=== PATIENT | female | born 1935 | race Caucasian/White ===

== ENCOUNTER 2022-07-22 18:24 | Inpatient (IN) ==
--- NOTE | 2022-07-22 20:25 | Emergency Department Note ---
History of Present Illness General Chief complaint: Leg Injury/Pain Stated complaint: SEVERE LEG PAIN Time Seen by Provider: 07/22/22 20:05 History of Present Illness Maximum Pain Intensity: 10 87-year-old female who presents to the emergency department with family with complaint of ongoing left lower extremity pain for the past month. The patient reports that it feels like spasms in her leg. She reports that the pain is intermittent in nature, upwards of 3 times daily. The patient did have an x-ray of her left hip showing evidence for severe osteoarthritis. She is awaiting an appointment with an orthopedic surgeon to discuss further treatment options. The patient is waiting for an appointment for possible injection within her hip joint. The patient has been taking prednisone, and is currently prescribed hydrocodone (to be taken 4 times daily) from her family doctor without any significant relief. The patient reports occasional lower back pain. She has not noticed any swelling of the left leg. She denies history of blood clots. The patient is on Eliquis. The patient rates her discomfort a 7 out of 10. Home Medications Medication Instructions Recorded Confirmed Type apixaban 5 mg tablet (Eliquis) 5 mg PO BID 07/15/22 07/15/22 History ascorbic acid (vitamin C) 1,000 mg 1 g PO Q6H 07/15/22 07/15/22 History capsule coenzyme Q10 100 mg capsule 100 mg PO DAILY 07/15/22 07/15/22 History (CoQ-10) diltiazem HCl 120 mg 120 mg PO DAILY 07/15/22 07/15/22 History capsule,extended release 24 hr (Cardizem CD) furosemide 40 mg tablet 40 mg PO DAILY 07/15/22 07/15/22 History lorazepam 0.5 mg tablet 0.5 mg PO HS 07/15/22 07/15/22 History multivitamin 1 tab PO DAILY 07/15/22 07/15/22 History potassium gluconate 595 mg (99 mg) 595 mg PO DAILY 07/15/22 07/15/22 History tablet diclofenac sodium 3 % topical gel 1 applic topical BID PRN pain #100 07/16/22 07/16/22 Rx grams losartan 50 mg tablet 50 mg PO DAILY #90 tabs 07/16/22 07/16/22 Rx cholecalciferol (vitamin D3) 50 50 mcg PO DAILY #90 caps 09/13/22 Rx mcg (2,000 unit) capsule famotidine 40 mg tablet 40 mg PO BID #180 tabs 07/20/22 Rx hydrocodone 5 mg-acetaminophen 325 1 tab PO Q6H PRN pain #120 tabs 07/20/22 Rx mg tablet levothyroxine 100 mcg tablet 100 mcg PO DAILY #90 tabs 07/20/22 Rx (Levoxyl) mecobalamin (vitamin B12) 1,000 1,000 mcg PO DAILY #90 ea 07/20/22 Rx mcg lozenges Brandon-600 With Vitamin D PO DAILY 07/22/22 History celecoxib PO QAM 07/22/22 History melatonin PO HS PRN Insomnia 07/22/22 History mirtazapine 15 mg tablet 7.5 mg PO HS 07/22/22 History Allergies Allergy/AdvReac Type Severity Reaction Status Date / Time Penicillins Allergy Unknown Unverified 07/15/22 09:58 [id number] Reductase AdvReac Severe Muscle Pain Unverified 07/16/22 06:28 Inhibitor Past Med/Surg History Medical History MAILE (acute kidney injury) Anemia Edema, lower extremity Hyperlipidemia Hypertension Hypothyroid Insomnia Neuropathy Osteoarthritis of multiple joints Permanent atrial fibrillation Surgical History No pertinent past surgical history Family History Sister Breast cancer Father Myocardial infarction Denies family history of Ovarian cancer Prostate cancer Colorectal cancer Social History Smoking Status: Never smoker Second Hand Exposure: No; Hx Alcohol Use: No Hx Substance Use: No Preferred Language: Guatemalan Visual Impairment: No Limitations Hearing Ability: Normal Caramel Cutter Machine Required: No Beliefs That Will Affect Care: None marital status: Single Current Living Situation: Family Current Living Situation Comment: lives w/ son How many Children do You have: 4 Feels Safe at Home: Yes Childhood Exposure to Second-Hand Smoke: No caffeine: Yes during the past year weight has: remained stable Review of Systems 10 system review was performed and was negative except for pertinent positives and negatives as indicated in history of present illness Physical Exam Vital Signs Vital Signs - 24 hr 07/22/22 19:26 07/22/22 22:56 Temperature 36.9 C Temperature Source Oral Pulse Rate 121 H Pulse Rate [Apical] 116 H Respiratory Rate 18 20 Respiratory Effort / Characteristics Non-Labored Spontaneous Non-Labored Respiratory Depth Normal Normal Blood Pressure 130/71 Blood Pressure [Right Arm] 140/75 Blood Pressure Mean 90 Blood Pressure Mean [Right Arm] 96 Blood Pressure Position Sitting Pulse Oximetry 91 95 Oxygen Delivery Method Room Air Room Air Sepsis Recent Fever Within 48 Hours No Sepsis New/Unexplained Change in Mental Status No Sepsis Action Taken by Nursing No Action Required CONSTITUTIONAL: Healthy and well nourished. Alert and oriented X 3. Patient appears in mild discomfort. HEENT: No scleral icterus or conjunctival injection/pallor. NECK: Full active range of motion without discomfort. LYMPHATICS: No cervical chain adenopathy. RESPIRATORY: Clear to auscultation bilaterally with no wheezing, crackles, rhonchi or stridor. CARDIOVASCULAR: Regular rate and rhythm with no murmurs, rubs or gallops. GASTROINTESTINAL: Bowel sounds present in all quadrants. Abdomen is soft and nontender to palpation. MUSCULOSKELETAL: Examination shows discomfort with logroll of the left hip. She has a negative sitting straight leg raise, and no focal tenderness to palpation through the lower lumbar spine or paraspinous muscles. Ankle plantar/dorsiflexion strength is 4 out of 5 and symmetric bilaterally. Pedal pulses are intact. INTEGUMENTARY: No rash or other significant dermatologic conditions noted. HEMATOLOGIC: No ecchymosis or petechiae. PSYCHIATRIC: Positive affect. NEUROLOGIC: Left foot and toes are sensory intact with deep tendon reflexes 2+ and symmetric bilaterally. Course Course Patient history and physical exam were performed. Nurses notes were reviewed. Vital signs were reviewed, showing a tachycardia. The patient denies any chest pain or shortness of breath. I explained that her symptoms are likely secondary to her severe osteoarthritis of the hip, however I did suggest possibilities of lumbar radiculitis, as well as possibility of DVT. I did recommend x-rays of the lumbar spine, and venous ultrasound of the left lower extremity. The patient and family were in agreement. X-rays of the lumbar spine shows significant degenerative changes and disc disease. Venous ultrasound of the left lower extremity was negative for DVT. After imaging, the patient still had notable discomfort. The daughter also reports that they are unable to take care of her at home as she is unable to weight-bear. At this point, IV access was established, and labs were drawn and reviewed without any concerning findings. COVID-19 test was negative. The case was discussed further with Dr. Chapman, ED attending physician, who agrees with hospitalist consultation. The case was then discussed with Dr. Cary, [facility] hospitalist who will evaluate the patient. Please see the hospitalist notes for further management and final disposition. Orthopedic consult will also be received tomorrow. I suspect the patient likely will require an outpatient total hip arthroplasty. Administered Medications Discontinued Medications Sodium Chloride (Nss) 500 mls @ 999 mls/hr IV .Q31M ONE Stop: 07/22/22 22:34 Last Infusion: 07/22/22 23:27 Dose: 0 mls/hr Documented By: Admin: 07/22/22 22:55 Dose: 999 mls/hr Documented By: ES Morphine Sulfate (Morphine Sulfate 4 Mg/Ml 1 Ml Carp\Vial) 4 mg IV NOW STA Stop: 07/22/22 22:05 Last Admin: 07/22/22 22:55 Dose: 4 mg Documented By: ES Ondansetron HCl (Ondansetron Inj 2 Mg/Ml 2 Ml Vial) 4 mg IV NOW STA Stop: 07/22/22 22:05 Last Admin: 07/22/22 22:55 Dose: 4 mg Documented By: TRENT Medical Decision Making Medical Records Attestation: I reviewed the patient's medical records. Home Medications Current Medication List: was personally reviewed by me Laboratory Data Attestation: I reviewed the patient's lab results. Result diagrams: 07/22/22 22:22 07/22/22 22:22 Lab Results 07/22/22 07/22/22 07/22/22 Range/Units 22:22 22:22 22:22 WBC 8.32 (4.8-10.8) K/ul RBC 3.56 L (3.93-5.22) M/uL Hgb 11.6 L (12.0-16.0) g/dl Hct 33.8 L (34.1-44.9) % MCV 94.9 (80.0-100.0) fL MCH 32.6 (25.0-34.0) pg MCHC 34.3 (32.0-36.0) g/dL RDW Std Deviation 48.9 H (36.4-46.3) fL RDW Coeff of Marcus 14.3 (11.5-14.5) % Plt Count 424 H (130-400) K/uL MPV 9.0 L (9.4-12.3) fL Immature Gran % (Auto) 0.8 % Neut % (Auto) 66.7 % Lymph % (Auto) 18.6 % Robertson % (Auto) 13.0 % Eos % (Auto) 0.5 % Baso % (Auto) 0.4 % Neut # (Auto) 5.55 (1.4-6.5) K/uL Lymph # (Auto) 1.55 (1.2-3.4) K/uL Robertson # (Auto) 1.08 H (0.24-0.82) K/uL Eos # (Auto) 0.04 (0-0.50) K/uL Baso # (Auto) 0.03 (0-0.2) K/uL Immature Gran # (Auto) 0.07 H (0.00-0.02) K/uL Sodium 137 (136-145) mmol/L Potassium 3.4 L (3.5-5.1) mmol/L Chloride 97 L (98-107) mmol/L Carbon Dioxide 30 (21-32) mmol/L Anion Gap 10 (3-11) BUN 17 (6-23) mg/dl Creatinine 0.94 (0.6-1.2) mg/dl Est Cr Clr Drug Dosing Not Reportable Est GFR ( Amer) 62.8 ml/min Est GFR (Non-Af Amer) 54.2 ml/min BUN/Creatinine Ratio 18.1 (10-20) Glucose 103 H (70-99(Fasting)) mg/dl Calcium 9.8 (8.5-10.1) mg/dl Total Bilirubin 0.5 (0.2-1.0) mg/dl AST 36 (13-39) U/L ALT 27 (7-52) U/L Alkaline Phosphatase 86 (34-104) U/L Total Protein 7.0 (6.0-8.3) gm/dl Albumin 4.3 (3.4-5.0) gm/dl Globulin 2.7 (2.5-4.0) gm/dl Albumin/Globulin Ratio 1.6 (0.9-2) SARS-CoV-2, RNA, NAAT NEGATIVE (NEGATIVE) Imaging Data Attestation: I personally reviewed and interpreted this imaging study as follows: My Impression: My interpretation of lumbar spine x-rays shows significant degenerative disc disease and osteoarthritis without obvious fracture. Local radiologist report is pending. Venous ultrasound of the left lower extremity was negative for DVT. Our local radiologist read this ultrasound report. Radiologist's Impression: Venous Doppler Study 07/22/22 20:05 LEFT LOWER EXTREMITY VENOUS DOPPLER HISTORY: Leg pain. COMPARISON STUDY: None. FINDINGS: There is normal compressibility, flow, and augmentation within the left lower extremity deep venous system. IMPRESSION: No DVT within the left lower extremity. ACT 112: Negative or not required by law. Electronically signed by: Melvin Willett M.D. 07/22/2022 8:54 PM Prescription Drug Monitoring [place] Drug Monitoring Program reviewed and findings noted below (Patient receives monthly prescriptions for hydrocodone from her PCP) Blood Pressure Blood Pressure Findings: Normal blood pressure MDM Narrative Patient presents the emergency department with known history of severe left hip osteoarthritis, and now inability to ambulate or weight-bear secondary to the pain. X-rays do not show evidence for fracture. I suspect the patient also has a component of lumbar radiculitis, with lumbar x-rays also showing severe degenerative changes. Given that the patient is unable to weight-bear, and in notable discomfort that is not controlled with hydrocodone, she will require further hospital evaluation and orthopedic consult. Impression & Plan Primary osteoarthritis of left hip, Left lumbar radiculitis, Osteoarthritis of lumbar spine, Inability to bear weight Discharge Plan Visit Data Chief Complaint: Leg Injury/Pain Stated Complaint: SEVERE LEG PAIN ED Provider: Delfin Chapman ED Midlevel Provider: Ronn Mendez Discharge Problem: Primary osteoarthritis of left hip, Left lumbar radiculitis, Osteoarthritis of lumbar spine, Inability to bear weight Forms Stand Alone Forms: My [employer] Prescriptions Prescriptions: No Action mecobalamin (vitamin B12) 1,000 mcg lozenge 1,000 mcg PO DAILY Qty: 90 3RF Rx Instructions: allow to dissolve in mouth OR may chew lightly before swallowing cholecalciferol (vitamin D3) 50 mcg (2,000 unit) capsule 50 mcg PO DAILY Qty: 90 3RF levothyroxine [Levoxyl] 100 mcg tablet 100 mcg PO DAILY Qty: 90 3RF hydrocodone-acetaminophen 5-325 mg tablet 1 tab PO Q6H PRN (Reason: pain) Qty: 120 0RF famotidine 40 mg tablet 40 mg PO BID Qty: 180 3RF potassium gluconate 595 mg (99 mg) tablet 595 mg PO DAILY furosemide 40 mg tablet 40 mg PO DAILY Eliquis 5 mg tablet 5 mg PO BID diltiazem HCl [Cardizem CD] 120 mg capsule,extended release 24hr 120 mg PO DAILY ascorbic acid (vitamin C) 1,000 mg capsule 1 g PO Q6H multivitamin Tablet 1 tab PO DAILY coenzyme Q10 [CoQ-10] 100 mg capsule 100 mg PO DAILY lorazepam 0.5 mg tablet 0.5 mg PO HS losartan 50 mg tablet 50 mg PO DAILY Qty: 90 3RF diclofenac sodium 3 % gel 1 applic topical BID PRN (Reason: pain) Qty: 100 5RF Rx Instructions: Apply sparingly to knee as needed for pain Brandon-600 With Vitamin D 600 mg tablet PO DAILY celecoxib 200 mg capsule PO QAM melatonin 2.5 mg PO HS PRN (Reason: Insomnia) mirtazapine 15 mg tablet 7.5 mg PO HS Referrals Referrals: Obey Peacock CRNP [Primary Care Provider] -
--- NOTE | 2022-07-22 20:56 | Ultrasound Report ---
LEFT LOWER EXTREMITY VENOUS DOPPLER HISTORY: Leg pain. COMPARISON STUDY: None. FINDINGS: There is normal compressibility, flow, and augmentation within the left lower extremity chio p venous system. IMPRESSION: No DVT within the left lower extremity. ACT 112: Negative or not required by law. Electronically signed by: Melvin Willett M.D. 07/22/2022 8:54 PM
[2022-07-22] MEDS ORDERED: ONDANSETRON INJ 2 MG/ML 2 ML VIAL IV STA (22:04)
[2022-07-22] MEDS ORDERED: MoRPHine SULFATE 4 MG/ML 1 ML CARP\\VIAL IV STA (22:04)
[2022-07-22] MEDS ORDERED: SODIUM CHLORIDE 0.9% 500 ML IV ONE (22:04)
[2022-07-22 22:39] LABS: Basophils # (auto) 0.03 K/uL (0-0.2); Basophils % (auto) 0.4 %; Eosinophils # (auto) 0.04 K/uL (0-0.50); Eosinophils % (auto) 0.5 %; Hematocrit (blood only) 33.8 % (34.1-44.9); Hemoglobin 11.6 g/dl (12.0-16.0); Immature Granulocytes # (auto) 0.07 K/uL (0.00-0.02); Immature Granulocytes % (auto) 0.8 %; Lymphocytes # (auto) 1.55 K/uL (1.2-3.4); Lymphocytes % (auto) 18.6 %; Mean Corpuscular Hemoglobin 32.6 pg (25.0-34.0); Mean Corpuscular Hgb Conc 34.3 g/dL (32.0-36.0); Mean Corpuscular Volume 94.9 fL (80.0-100.0); Monocytes # (auto) 1.08 K/uL (0.24-0.82); Neutrophils # (auto) 5.55 K/uL (1.4-6.5); Neutrophils % (auto) 66.7 %; Platelet Count 424 K/uL (130-400); RDW Coefficient of Variation 14.3 % (11.5-14.5); RDW Standard Deviation 48.9 fL (36.4-46.3); Red Blood Count 3.56 M/uL (3.93-5.22); White Blood Count 8.32 K/ul (4.8-10.8)
[2022-07-22 23:15] LABS: Alanine Aminotransferase 27 U/L (7-52); Albumin Globulin Ratio 1.6 (0.9-2); Albumin Level 4.3 gm/dl (3.4-5.0); Alkaline Phosphatase 86 U/L (34-104); Anion Gap 10 (3-11); Aspartate Aminotransferase 36 U/L (13-39); BUN Creatinine Ratio 18.1 (10-20); Bilirubin,Total 0.5 mg/dl (0.2-1.0); Blood Urea Nitrogen 17 mg/dl (6-23); Calcium 9.8 mg/dl (8.5-10.1); Carbon Dioxide 30 mmol/L (21-32); Chloride 97 mmol/L (98-107); Est GFR (African American) 62.8 ml/min; Est GFR (Non-African American) 54.2 ml/min; Globulin 2.7 gm/dl (2.5-4.0); Glucose 103 mg/dl (70-99(Fasting)); Potassium 3.4 mmol/L (3.5-5.1); Sodium 137 mmol/L (136-145)
--- NOTE | 2022-07-22 23:59 | History & Physical Report ---
Date of Service July 22, 2022 Assessment & Plan (1) Primary osteoarthritis of left hip: Plan: Severe osteoarthritis left hip/lumbar spine/left lumbar radiculitis/inability to bear weight- Admit patient to the hospital for pain management and orthopedic assessment Acetaminophen 1000 mg IV every 8 hours. Mild pain or fever Morphine sulfate 2 mg IV every 3 hours as needed moderate pain Morphine sulfate 4 mg IV every 3 hours as needed severe pain Continue tizanidine Consult orthopedic surgery as needed (2) Ambulatory dysfunction: Plan: X-rays and CT scan of the lumbar spine, pelvis and hips show severe osteoarthritis as noted, with no signs of fracture (3) Left lumbar radiculitis: Plan: Continue gabapentin (4) Permanent atrial fibrillation: Plan: Permanent A. fib/hypertension- Continue apixaban, diltiazem, furosemide, losartan and spironolactone (5) Osteoarthritis of lumbar spine: Plan: Pain management as noted (6) Inability to bear weight: (7) Neuropathy: Plan: Continue gabapentin, duloxetine, (8) Insomnia: Plan: Continue mirtazapine, duloxetine (9) Hypothyroid: Plan: Continue levothyroxine (10) Hyperlipidemia: Plan: Continue (11) Hypertension: Plan: See above History of Present Illness Chief Complaint: The patient is brought to the emergency department due to worsening left lower extremity pain for the past month Primary Care Provider: PETER Teixeira The patient is a an 87-year-old female with a past medical history including peripheral neuropathy, insomnia, lower extremity edema, MAILE, anemia, hypothyroidism, hyperlipidemia, hypertension and permanent atrial fibrillation. She had recently moved from [facility] to [place] to be closer to her family. She had had an outpatient x-ray which showed significant osteoarthritis of left hip, and has been waiting in the outpatient setting for an orthopedic appointment. Due to worsening pain and worsening ability to ambulate, she was brought to the emergency department for assessment, patient's family was unable to take her home at this time. She was also found to be in known atrial fibrillation, heart rate initially of recorded as 120, did improve with pain control. Allergies Allergy/AdvReac Type Severity Reaction Status Date / Time Penicillins Allergy Unknown Unknown Unverified 07/23/22 02:09 [id number]-[id number] Reductase AdvReac Severe Muscle Pain Unverified 07/23/22 02:09 Inhibitor Home Medications Medication Instructions Recorded Confirmed Type Bifidobacterium infantis 4 mg 4 mg PO DAILY 07/23/22 07/23/22 History capsule (Align) acetaminophen 650 mg 650 mg PO TID 07/23/22 07/23/22 History tablet,extended release apixaban 5 mg tablet (Eliquis) 5 mg PO BID 07/23/22 07/23/22 History ascorbic acid (vitamin C) 100 mg 100 mg PO DAILY 07/23/22 07/23/22 History tablet (Vitamin C) calcium carbonate 600 mg-vitamin 1 tab PO BID 07/23/22 07/23/22 History D3 20 mcg (800 unit) chewable tablet (Caltrate 600 plus D) celecoxib 200 mg capsule 200 mg PO QAM 07/23/22 07/23/22 History cholecalciferol (vitamin D3) 50 2,000 unit PO DAILY 07/23/22 07/23/22 History mcg (2,000 unit) capsule coenzyme Q10 100 mg capsule 100 mg PO DAILY 07/23/22 07/23/22 History (CoQ-10) cyanocobalamin (vitamin B-12) 1,000 mcg PO DAILY 07/23/22 07/23/22 History 1,000 mcg tablet (Vitamin B-12) diltiazem HCl 120 mg 120 mg PO DAILY 07/23/22 07/23/22 History capsule,extended release 24 hr duloxetine 30 mg capsule,delayed 30 mg PO DAILY 07/23/22 07/23/22 History release famotidine 40 mg tablet 40 mg PO BID 07/23/22 07/23/22 History furosemide 40 mg tablet 40 mg PO AMHS 07/23/22 07/23/22 History gabapentin 100 mg capsule 100 mg PO BID 07/23/22 07/23/22 History hydrocodone 5 mg-acetaminophen 325 1 tab PO Q6 PRN Pain 07/23/22 07/23/22 History mg tablet ipratropium bromide 21 mcg (0.03 2 spray intranasal BID PRN Nasal 07/23/22 07/23/22 History %) nasal spray Congestion levothyroxine 100 mcg tablet 100 mcg PO DAILY 07/23/22 07/23/22 History lidocaine 5 % topical patch 1 patch topical DAILY 07/23/22 07/23/22 History lorazepam 0.5 mg tablet 0.5 mg PO BID PRN Anxiety 07/23/22 07/23/22 History losartan 50 mg tablet 50 mg PO DAILY 07/23/22 07/23/22 History magnesium 250 mg tablet 250 mg PO DAILY 07/23/22 07/23/22 History mirtazapine 15 mg tablet 7.5 mg PO HS 07/23/22 07/23/22 History multivitamin 1 tab PO DAILY 07/23/22 07/23/22 History omega-3 fatty acids 1,000 mg PO DAILY 07/23/22 07/23/22 History potassium gluconate 595 mg (99 mg) 595 mg PO DAILY 07/23/22 07/23/22 History tablet pyridoxine (vitamin B6) 100 mg 100 mg PO DAILY 07/23/22 07/23/22 History tablet (Vitamin B-6) spironolactone 25 mg tablet 25 mg PO BID 07/23/22 07/23/22 History tizanidine 4 mg tablet 4 mg PO Q8 PRN Muscle Spasm 07/23/22 07/23/22 History Past Med/Surg History Medical History MAILE (acute kidney injury) Anemia Edema, lower extremity Hyperlipidemia Hypertension Hypothyroid Insomnia Neuropathy Osteoarthritis of multiple joints Permanent atrial fibrillation Surgical History No pertinent past surgical history Family History Sister Breast cancer Father Myocardial infarction Denies family history of Ovarian cancer Prostate cancer Colorectal cancer Social History Smoking Status: Never smoker Second Hand Exposure: No; Hx Alcohol Use: No Hx Substance Use: No Preferred Language: Khmer Visual Impairment: No Limitations Hearing Ability: Normal Utility Forester Required: No Beliefs That Will Affect Care: None marital status: Single Current Living Situation: Family Current Living Situation Comment: lives w/ son How many Children do You have: 4 Feels Safe at Home: Yes Childhood Exposure to Second-Hand Smoke: No caffeine: Yes during the past year weight has: remained stable Review of Systems Review of Systems: The patient denies chest pain, palpitations, shortness of breath, dyspnea on exertion, cough, sore throat, fevers, chills, sweats, weight change, fatigue, nausea, vomiting, diarrhea , constipation, abdominal pain, pelvic pain, blood in urine or stool, dysuria, urinary frequency or urgency, lightheadedness, dizziness, headache, memory loss, loss of consciousness, rash, abnormal bruising or bleeding, focal or generalized weakness, numbness or tingling in arms, generalized arthralgias or myalgias, neck pain, or night sweats. The review of systems is otherwise negative other than for that already noted above, and at least 10 systems have been reviewed. Physical Exam Physical Exam: The patient is awake, alert and oriented 3, well developed and well nourished, normocephalic and atraumatic, lying in bed and in no acute distress. HEENT--PERRL, EOMI, mucous membranes and oropharynx dry. Neck--supple. No JVD. No bruits. Thyroid normal, trachea midline, no adenopathy. Heart--normal S1 and S2. No murmurs, rubs or gallops. Lungs--clear bilaterally, no respiratory distress, no accessory muscle use. Abdomen--normal bowel sounds and soft. Nontender. Nondistended, no hernias or masses, no organomegaly. Extremities--no cyanosis or clubbing. No edema Dermatologic--normal skin turgor, normal color, no abnormal lymph nodes, no ra sh. Neurologic--cranial nerves II through XII grossly intact. Rheumatologic--decreased range of motion left lower extremity due to pain Psychiatric--normal affect. Results & Data Results & Data ([facility]) Vital Signs (Past 12 Hours) Vital Signs Temp Pulse Pulse Resp BP BP Pulse Ox 07/22/22 22:56 116 H 20 140/75 95 07/22/22 19:26 36.9 C 121 H 18 130/71 91 O2 Del Method 07/22/22 22:56 Room Air 07/22/22 19:26 Room Air Laboratory Results Laboratory Results WBC 8.32 K/ul (4.8-10.8) 07/22/22 22:22 RBC 3.56 M/uL (3.93-5.22) L 07/22/22 22:22 Hgb 11.6 g/dl (12.0-16.0) L 07/22/22 22:22 Hct 33.8 % (34.1-44.9) L 07/22/22 22:22 MCV 94.9 fL (80.0-100.0) 07/22/22: MCH 32.6 pg (25.0-34.0) 07/22/22: MCHC 34.3 g/dL (32.0-36.0) 07/22/22: RDW Std Deviation 48.9 fL (36.4-46.3) H 07/22/22: RDW Coeff of Marcus 14.3 % (11.5-14.5) 07/22/22: Plt Count 424 K/uL (130-400) H 07/22/22: MPV 9.0 fL (9.4-12.3) L 07/22/22: Immature Gran % (Auto) 0.8 % 07/22/22: Neut % (Auto) 66.7 % 07/22/22: Lymph % (Auto) 18.6 % 07/22/22: [place] % (Auto) 13.0 % 07/22/22: Eos % (Auto) 0.5 % 07/22/22: Baso % (Auto) 0.4 % 07/22/22: Neut # (Auto) 5.55 K/uL (1.4-6.5) 07/22/22: Lymph # (Auto) 1.55 K/uL (1.2-3.4) 07/22/22: [place] # (Auto) 1.08 K/uL (0.24-0.82) H 07/22/22: Eos # (Auto) 0.04 K/uL (0-0.50) 07/22/22: Baso # (Auto) 0.03 K/uL (0-0.2) 07/22/22: Immature Gran # (Auto) 0.07 K/uL (0.00-0.02) H 07/22/22: Sodium 137 mmol/L (136-145) 07/22/22: Potassium 3.4 mmol/L (3.5-5.1) L 07/22/22: Chloride 97 mmol/L (98-107) L 07/22/22: Carbon Dioxide 30 mmol/L (21-32) 07/22/22 22:22 Anion Gap 10 (3-11) 07/22/22 22:22 BUN 17 mg/dl (6-23) 07/22/22 22: Creatinine 0.94 mg/dl (0.6-1.2) 07/22/22 22:22 Est Cr Clr Drug Dosing Not Reportable 07/22/22 22:22 Est GFR ( Amer) 62.8 ml/min 07/22/22 22: Est GFR (Non-Af Amer) 54.2 ml/min 07/22/22 22: BUN/Creatinine Ratio 18.1 (10-20) 07/22/22 22: Glucose 103 mg/dl (70-99(Fasting)) H 07/22/22 22: Calcium 9.8 mg/dl (8.5-10.1) 07/22/22 22: Total Bilirubin 0.5 mg/dl (0.2-1.0) 07/22/22 22: AST 36 U/L (13-39) 07/22/22 22:22 ALT 27 U/L (7-52) 07/22/22 22:22 Alkaline Phosphatase 86 U/L (34-104) 07/22/22 22: Total Protein 7.0 gm/dl (6.0-8.3) 07/22/22 22: Albumin 4.3 gm/dl (3.4-5.0) 07/22/22 22: Globulin 2.7 gm/dl (2.5-4.0) 07/22/22 22:22 Albumin/Globulin Ratio 1.6 (0.9-2) 07/22/22 22:22 SARS-CoV-2, RNA, NAAT NEGATIVE (NEGATIVE) 07/22/22 22:22 Impressions Venous Doppler Study 07/22/22 20:05 LEFT LOWER EXTREMITY VENOUS DOPPLER HISTORY: Leg pain. COMPARISON STUDY: None. FINDINGS: There is normal compressibility, flow, and augmentation within the left lower extremity deep venous system. IMPRESSION: No DVT within the left lower extremity. ACT 112: Negative or not required by law. Electronically signed by: Melvin Willett M.D. 07/22/2022 8:54 PM Code Status & VTE Plan Code Status Full code VTE Prophylaxis Plan VTE Prophylaxis will be ordered: Yes PG Care Time/CCT Total # of Minutes Spent Total Time Spent with Patient: Total time spent is greater than 50% in coordination of care (as documented) at patient's floor/unit and/or counseling patient: Coding Level of Care Code INT OBSERVATION CARE 70M LVL 3 Diagnoses Primary osteoarthritis of left hip M16.12 Ambulatory dysfunction R26.2 Left lumbar radiculitis M54.16 Permanent atrial fibrillation I48.21 Osteoarthritis of lumbar spine M47.816 Inability to bear weight R26.89 Neuropathy G62.9 Insomnia G47.00 Hypothyroid E03.9 Hyperlipidemia E78.5 Hypertension I10
[2022-07-23] MEDS ORDERED: MoRPHine SULFATE 4 MG/ML 1 ML CARP\\VIAL IV PRN (00:11)
[2022-07-23] MEDS ORDERED: MoRPHine SULFATE 2 MG/ML CARP IV PRN (00:11)
[2022-07-23] MEDS ORDERED: ACETAMINOPHEN 1,000 MG/100 ML VIAL IV PRN (00:11)
[2022-07-23] MEDS ORDERED: NSS + 20MEQ KCL 20 MEQ/1,000 ML BAG IV SCH ×2 (01:15→02:32)
[2022-07-23] MEDS ORDERED: ONDANSETRON INJ 2 MG/ML 2 ML VIAL IV PRN (02:32)
[2022-07-23 04:36] LABS: Basophils # (auto) 0.03 K/uL (0-0.2); Basophils % (auto) 0.4 %; Eosinophils # (auto) 0.01 K/uL (0-0.50); Eosinophils % (auto) 0.1 %; Hematocrit (blood only) 28.9 % (34.1-44.9); Hemoglobin 9.6 g/dl (12.0-16.0); Immature Granulocytes # (auto) 0.05 K/uL (0.00-0.02); Immature Granulocytes % (auto) 0.6 %; Lymphocytes # (auto) 1.48 K/uL (1.2-3.4); Lymphocytes % (auto) 19.2 %; Mean Corpuscular Hemoglobin 32.4 pg (25.0-34.0); Mean Corpuscular Hgb Conc 33.2 g/dL (32.0-36.0); Mean Corpuscular Volume 97.6 fL (80.0-100.0); Mean Platelet Volume 8.8 fL (9.4-12.3); Monocytes % (auto) 14.3 %; Neutrophils # (auto) 5.03 K/uL (1.4-6.5); Neutrophils % (auto) 65.4 %; Platelet Count 349 K/uL (130-400); RDW Coefficient of Variation 14.2 % (11.5-14.5); RDW Standard Deviation 50.6 fL (36.4-46.3); Red Blood Count 2.96 M/uL (3.93-5.22)
[2022-07-23 04:55] LABS: INR 1.2 (0.9-1.1); Partial Thromboplastin Ratio 1.1; Partial Thromboplastin Time 30.2 Seconds (21.0-31.0); Prothrombin Time 12.5 Seconds (9.0-12.0)
[2022-07-23 05:08] LABS: Alanine Aminotransferase 20 U/L (7-52); Albumin Globulin Ratio 1.8 (0.9-2); Albumin Level 3.5 gm/dl (3.4-5.0); Alkaline Phosphatase 70 U/L (34-104); Anion Gap 4 (3-11); Aspartate Aminotransferase 24 U/L (13-39); BUN Creatinine Ratio 17.4 (10-20); Bilirubin,Total 0.4 mg/dl (0.2-1.0); Blood Urea Nitrogen 16 mg/dl (6-23); Calcium 8.8 mg/dl (8.5-10.1); Carbon Dioxide 33 mmol/L (21-32); Chloride 102 mmol/L (98-107); Est GFR (African American) 64.4 ml/min; Est GFR (Non-African American) 55.6 ml/min; Glucose 111 mg/dl (70-99(Fasting)); Potassium 3.8 mmol/L (3.5-5.1); Sodium 139 mmol/L (136-145); Total Protein 5.5 gm/dl (6.0-8.3)
--- NOTE | 2022-07-23 07:37 | XRay Report ---
XR lumbar spine min 4V routine CLINICAL HISTORY: LLE pain - possible radiculitis TECHNIQUE: 5 views of the lumbar spine were obtained. Comparison: None available at the time of this dictation. FINDINGS: There is no evidence of an acute fracture. Degenerative changes are seen in the lumbar spine most pro minent at L3-L4, L4-L5 and L5-S1.. Grade 1 anterolisthesis is seen at L5-S1. No soft tissue abnormali ty is seen. IMPRESSION: Multilevel degenerative changes most prominent in the lower lumbar spine. ACT 112: Negative or not required by law. Electronically signed by: Kota Dasilva M.D. 07/23/2022 7:35 AM
--- NOTE | 2022-07-23 08:08 | XRay Report ---
XR hip LT 2V w pelvis CLINICAL HISTORY: Left hip pain. COMPARISON: None FINDINGS: Sacroiliac joints and symphysis pubis are intact. No acute fracture within the pelvis or h ips is identified. Moderate left hip osteoarthritis is noted with mild joint space narrowing and mode rate osteophytosis. There may be a joint body. IMPRESSION: 1. No acute fracture within the pelvis or hips. 2. Moderate left hip osteoarthritis. Possible left hip joint body. ACT 112: Negative or not required by law. Electronically signed by: Mikael Corbin M.D. 07/23/2022 8:06 AM
--- NOTE | 2022-07-23 08:14 | XRay Report ---
XR chest 1V portable CLINICAL HISTORY: hypoxia TECHNIQUE: Single frontal radiograph of the chest was obtained. Comparison: None available at the time of this dictation. FINDINGS: No lines and tubes are seen. Calcified aortic knob is seen. The lungs are clear. No evidence of pleur al effusion or pneumothorax. IMPRESSION: No acute abnormalities and in particular no evidence of pneumonia. ACT 112: Negative or not required by law. Electronically signed by: Kota Dasilva M.D. 07/23/2022 8:12 AM
--- NOTE | 2022-07-23 08:33 | CT Scan Report ---
CT bony pelvis wo con CLINICAL HISTORY: severe left hip pain TECHNIQUE: Multisequence, multiplanar MR images of the pelvis were obtained without contrast COMPARISON: None available at the time of this dictation. FINDINGS: No evidence of acute fracture. Diffuse osteopenia is seen. There is grade 1 anterolisthesis of L5-S1. 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 The proximal right common iliac artery is dilated measuring up to 1.5 cm. IMPRESSION: Diffuse osteopenia without evidence of acute fracture. In particular, no evidence of left hip injury. ACT 112: Negative or not required by law. Electronically signed by: Kota Dasilva M.D. 07/23/2022 8:31 AM
[2022-07-23] MEDS ORDERED: HYDROCODONE/ACETAMOPHEN 5/325MG TAB PO PRN (08:36)
[2022-07-23] MEDS ORDERED: tiZANidine HCL 4 MG TABLET PO PRN (08:36)
[2022-07-23] MEDS ORDERED: LORazepam 0.5 MG TAB PO PRN (08:36)
[2022-07-23] MEDS ORDERED: FUROSEMIDE 40 MG TAB PO SCH (09:00)
[2022-07-23] MEDS ORDERED: dilTIAZem HCL 120 MG CAPCR PO SCH (09:00)
[2022-07-23] MEDS: CHOLECALCIFEROL 1,000 UNITS 25 MCG TAB PO SCH (09:38)
[2022-07-23] MEDS: PYRIDOXINE HCL 50 MG TAB PO SCH (09:39)
[2022-07-23] MEDS: DULoxetine HCL 30 MG CAP PO SCH (09:40)
[2022-07-23] MEDS: LIDOCAINE 5% 1 PATCH TD SCH (09:40)
[2022-07-23] MEDS: GABAPENTIN 100 MG CAP PO SCH ×2 (09:40→20:14)
[2022-07-23] MEDS: LEVOTHYROXINE SODIUM 100 MCG TABLET PO SCH (09:40)
[2022-07-23] MEDS: CeleBREX 200 MG CAP PO SCH (09:49)
[2022-07-23] MEDS: FAMOTIDINE 40 MG TABLET PO SCH (10:19)
[2022-07-23] MEDS: Patient's HEIGHT &/or WEIGHT Needed SCH ×2 (11:23→11:24)
[2022-07-23] MEDS ORDERED: SODIUM CHLORIDE 0.9% 1000ML 250 ML IV ONE (11:26)
[2022-07-23] MEDS ORDERED: traMADol HCL 50 MG TABLET PO PRN (11:27)
--- NOTE | 2022-07-23 11:32 | Hospitalist Progress Note ---
Date of Service July 23, 2022 Assessment & Plan (1) Primary osteoarthritis of left hip: Plan: Severe osteoarthritis left hip/lumbar spine/left lumbar radiculitis/inability to bear weight- - Uncertain whether this is primary OA pain from her L hip or radicular pain from her back - Continue pain control: Acetaminophen 1000 mg IV q8, Tramadol 50mg for mod pain and 100mg for severe pain - Lidoderm patches - Continue tizanidine - MRI of lumbar spine - Will consider consulting orthopedic surgery - however, will wait until after results of MRI lumbar spine * Patient was already scheduled to see [facility] for hip, if lumbar MRI unrevealing, will consult [facility] re: hip - PT/OT eval - Case management to assist in d/c planning - anticipate she will need HH arranged at minimum (2) Ambulatory dysfunction: Plan: X-rays and CT scan of the lumbar spine, pelvis and hips show severe osteoarthritis as noted, with no signs of fracture - MRI as above along with PT/OT assessments (3) Left lumbar radiculitis: Plan: - Continue gabapentin (4) Permanent atrial fibrillation: Plan: Permanent A. fib/hypertension- - Takes apixaban, diltiazem, furosemide, losartan and spironolactone at home - Given Cardizem CD dose this AM 120mg and BP dropped to 74 systolic, asymptomatic - Losartan held this AM due to borderline low-normal BP - Continue holding Losartan, received a dose of Lasix this AM, will adjust dose to once a day - Give a SMALL NSS bolus of 250 cc x1, repeat BP following bolus - Adjust meds: STOP Diltiazem CD and will consider changing to low dose Metoprolol if BP will allow, otherwise will need to consider Digoxin for rate control (5) Osteoarthritis of lumbar spine: Plan: - As above (6) Neuropathy: Plan: - Continue gabapentin, duloxetine (7) Insomnia: Plan: - Continue mirtazapine (8) Hypothyroid: Plan: - Continue levothyroxine Plan Patient appears to have been put on oxygen, doesn't wear at home, no documented pulse ox below 91%. Will wean off O2. Remaining interventions as outlined above. Make full admit. Plan d/w Dr. Calderón. Further orders as warranted. Admission and Anticipated Discharge Date Admission Date: July 22, 2022 Subjective Patient was seen on daily rounds this morning. She is resting comfortably in bed. Has been recently living with her daughter but having increasing difficulty walking around at home due to pain in her left leg. Daughter concerned that she may be having issues with her back. Was asking about an MRI. She has an appointment with [facility] orth[facility] in September regarding her L hip. She denies saddle anesthesias, bowel/bladder incontinence. No cp or dyspnea. Noted that she is requiring some supplemental oxygen this morning which she does not wear at home. Pt has tried steroid taper in the past for her pain and felt she did not get any improvement. Notified by RN this am after receiving her Diltiazem CD dose that her BP dropped to 70s systolic. Pt asymptomatic. Review of Systems Review of Systems: All systems reviewed and are unremarkable except as noted in HPI and below. Denies fever, chills, fatigue, headache, nasal congestion, sore throat, cough, chest pain, shortness of breath, palpitations, orthopnea, PND, abdominal pain, n/v/d, constipation, dysuria, hematuria, frequency, easy bruising or bleeding, skin lesions or rashes. Physical Exam Physical Exam: GENERAL: 87 yo Well-developed, well-nourished WF. NAD. LUNGS: Clear to auscultation bilaterally. No W/R/R. CARDIOVASCULAR: S1 S2 irregular ABDOMEN: Soft, non-tender and non-distended. BS normoactive x 4 quad. EXTREMITIES: No edema. Non-tender. Peripheral pulses +2/4. Tenderness of L hip joint. No significant tenderness of lumbar spinous processes or paravertebral muscles. No L SI joint tenderness elicited. NEUROLOGIC: A&O x3. Nonfocal PSYCHIATRIC: Cooperative. Appropriate mood and affect. SKIN: Warm, dry, intact. No rashes or lesions. Results & Data Results & Data ([facility]) Vital Signs (Past 12 Hours) Vital Signs Pulse Resp BP Pulse Ox O2 Del Method O2 Flow Rate 07/23/22 10:53 68 18 74/46 L 98 07/23/22 09:30 93 H 116/58 L 07/23/22 10:23 95 Nasal Cannula 2 07/23/22 06:48 87 18 116/53 L 96 Nasal Cannula 2 07/23/22 02:34 79 18 98/77 L 96 Nasal Cannula 2 07/23/22 00:58 78 18 106/55 L 100 Room Air Laboratory Results 07/23/22 04:07 07/23/22 04:07 PG Care Time/CCT Total # of Minutes Spent Total Time Spent with Patient: Total time spent is greater than 50% in coordination of care (as documented) at patient's floor/unit and/or counseling patient: Coding Level of Care Code 83936 Subseq Hosp Care Lvl 2 Diagnoses Primary osteoarthritis of left hip M16.12 Ambulatory dysfunction R26.2 Left lumbar radiculitis M54.16 Permanent atrial fibrillation I48.21 Osteoarthritis of lumbar spine M47.816 Neuropathy G62.9 Insomnia G47.00 Hypothyroid E03.9
--- NOTE | 2022-07-23 13:16 | Magnetic Resonance Report ---
LUMBAR SPINE MRI HISTORY: radicular pain down L leg TECHNIQUE: Multiplanar multisequence MRI of the lumbar spine was performed without the use of contras t. COMPARISON: Lumbar spine radiograph 07/22/2022. FINDINGS: For the purpose of the report the L5-S1 disc space will be located on axial image 27 of 30. No fractures within the lumbar spine. The conus terminates at the L1 level. There is mild disc space narrowing at L1-L2. Moderate disc space narrowing at L2-L3 and L5-S1. Severe disc space narrowing at L3-L4 and L4-L5. There are small endplate osteophytes seen throughout the lumbar spine. Moderate to s evere facet degenerative changes throughout the lumbar spine most pronounced at the L5-S1 level. The visualized sacrum is intact. Prevertebral soft tissues are unremarkable. There is 6 mm of anterolisth esis of L5 on S1. L1-L2: Broad-based posterior disc bulge with mild ligamentum and facet hypertrophy resulting in mild to moderate bilateral neural foraminal narrowing. No significant central canal narrowing. L2-L3: Broad-based posterior disc bulge with ligamentum and facet hypertrophy resulting in mild centr al canal and mild to moderate bilateral neural foraminal narrowing. L3-L4: Broad-based posterior disc bulge with ligamentum and facet hypertrophy resulting in moderate c entral canal narrowing with the AP diameter measuring 6 mm. There is also mild to moderate bilateral neural foraminal narrowing. L4-L5: Broad-based posterior disc bulge with severe ligamentum and facet hypertrophy resulting in sev ere central canal narrowing. Best seen on the sagittal sequences the AP diameter is less than 2 mm. T his appears to compress the nerve roots at this level. There is also moderate to severe bilateral marcial ral foraminal narrowing. L5-S1: Broad-based posterior disc bulge with ligamentum and facet hypertrophy. In conjunction with th e anterolisthesis there is moderate central canal narrowing with the AP diameter measuring 6.3 mm. Th ere is also severe bilateral neural foraminal narrowing. IMPRESSION: 1. Multilevel lumbar spondylosis as described above with severe central canal narrowing at L4-L5 due to a broad-based posterior disc bulge and advanced ligamentum/facet hypertrophy. The central canal me asures less than 2 mm in AP diameter resulting in compression of the nerve roots at this level. 2. There is 6 mm of anterolisthesis of L5 on S1. 3. No fractures within the lumbar spine. ACT 112: Negative or not required by law. Electronically signed by: Melvin Willett M.D. 07/23/2022 1:14 PM
[2022-07-23] MEDS: APIXABAN 5 MG TABLET PO SCH ×2 (13:29→20:13)
--- NOTE | 2022-07-23 15:42 | Electrocardiogram Report ---
Test Reason : Blood Pressure : / mmHG Vent. Rate : 082 BPM Atrial Rate : 111 BPM P-R Int : 000 ms QRS Dur : 094 ms QT Int : 404 ms P-R-T Axes : 000 -02 021 degrees QTc Int : 472 ms Atrial fibrillation Nonspecific ST abnormality Abnormal ECG No previous ECGs available Confirmed by Get Estrella ([id number]) on 07/23/2022 3:42:27 PM Referred By: REFERRED SELF Confirmed By:Get Estrella
[2022-07-23] MEDS: SIMETHICONE 80 MG CHEW PO PRN (16:30)
[2022-07-23] MEDS: traMADol HCL 50 MG TABLET PO PRN (19:22)
[2022-07-23] MEDS: MIRTAZAPINE TAB 15 MG TAB PO SCH (20:14)
[2022-07-24] MEDS: LEVOTHYROXINE SODIUM 100 MCG TABLET PO SCH (05:50)
[2022-07-24 07:45] LABS: Basophils # (auto) 0.03 K/uL (0-0.2); Basophils % (auto) 0.4 %; Eosinophils # (auto) 0.05 K/uL (0-0.50); Eosinophils % (auto) 0.7 %; Hematocrit (blood only) 28.5 % (34.1-44.9); Hemoglobin 9.8 g/dl (12.0-16.0); Immature Granulocytes # (auto) 0.03 K/uL (0.00-0.02); Immature Granulocytes % (auto) 0.4 %; Lymphocytes % (auto) 15.3 %; Mean Corpuscular Hemoglobin 32.8 pg (25.0-34.0); Mean Corpuscular Hgb Conc 34.4 g/dL (32.0-36.0); Mean Corpuscular Volume 95.3 fL (80.0-100.0); Mean Platelet Volume 8.9 fL (9.4-12.3); Monocytes # (auto) 1.01 K/uL (0.24-0.82); Neutrophils # (auto) 4.99 K/uL (1.4-6.5); Neutrophils % (auto) 69.2 %; Platelet Count 329 K/uL (130-400); RDW Coefficient of Variation 14.3 % (11.5-14.5); RDW Standard Deviation 49.2 fL (36.4-46.3); Red Blood Count 2.99 M/uL (3.93-5.22); White Blood Count 7.21 K/ul (4.8-10.8)
[2022-07-24 07:56] LABS: INR 1.2 (0.9-1.1); Partial Thromboplastin Ratio 1.1; Partial Thromboplastin Time 31.6 Seconds (21.0-31.0); Prothrombin Time 12.7 Seconds (9.0-12.0)
[2022-07-24 08:05] LABS: Albumin Globulin Ratio 1.7 (0.9-2); Albumin Level 3.5 gm/dl (3.4-5.0); BUN Creatinine Ratio 16.7 (10-20); Bilirubin,Total 0.5 mg/dl (0.2-1.0); Creatinine Clr Calc Pharmacy 50.4 ml/min; Est GFR (African American) 86.7 ml/min; Est GFR (Non-African American) 74.8 ml/min; Globulin 2.1 gm/dl (2.5-4.0); Potassium 3.4 mmol/L (3.5-5.1); Total Protein 5.6 gm/dl (6.0-8.3)
[2022-07-24] MEDS ORDERED: POTASSIUM CHLORIDE CRTAB 20 MEQ TABCR PO STA (08:37)
--- NOTE | 2022-07-24 08:40 | Consultation ---
Date of Consultation July 24, 2022 Assessment & Plan (1) Lumbar spinal stenosis: I have reviewed MRI findings with the patient. Options to be considered include conservative treatment i.e. pain management versus considering possible surgical intervention if she is deemed from a medical and cardiac standpoint as a possible candidate. Dr. Daigle is out of town for the weekend. He will review this case as well as images and discuss with Ms. Riojas her options in more detail on Tuesday. She is obviously high risk in light of her age, medical and cardiac comorbidities. I am also concerned that due to her degree of central stenosis at the L4-5 level we might experience a dural ectasia if surgical i ntervention is considered. Conservative treatment for now until Dr. Daigle reviews this case and makes more final recommendations. History of Present Illness Reason for Consultation: Lumbar spinal stenosis Attending Physician: Carlos Calderón MD History of Present Illness Is a pleasant 87-year-old female who presented to the emergency room due to left lower extremity pain and spasms. She states this has been ongoing for several months. She admits with a walker. She states she just recently moved in with her son and [id number] but they are having a difficult time taking care of her because of above-mentioned complaints. When pain is severe she states she will lie down and apply either ice or heat. Pain is 100% in the left lower extremity involving the buttock, lateral thigh, lateral calf. Right leg is asymptomatic. She is trialed a chiropractor for 1 visit without relief. She believes she underwent an injection about a year or so ago from Dr. Gomez at [facility] with minimal relief. She is on [place] for pain control provided by her PCP. She denies bowel bladder dysfunction. Denies perineum numbness. Allergies Allergy/AdvReac Type Severity Reaction Status Date / Time Penicillins Allergy Unknown Unknown Unverified 07/23/22 02:09 [id number]-ACU-SxF Reductase AdvReac Severe Muscle Pain Unverified 07/23/22 02:09 Inhibitor Home Medications Medication Instructions Recorded Confirmed Type Bifidobacterium infantis 4 mg 4 mg PO DAILY 07/23/22 07/23/22 History capsule (Align) acetaminophen 650 mg 650 mg PO TID 07/23/22 07/23/22 History tablet,extended release apixaban 5 mg tablet (Eliquis) 5 mg PO BID 07/23/22 07/23/22 History ascorbic acid (vitamin C) 100 mg 100 mg PO DAILY 07/23/22 07/23/22 History tablet (Vitamin C) calcium carbonate 600 mg-vitamin 1 tab PO BID 07/23/22 07/23/22 History D3 20 mcg (800 unit) chewable tablet (Caltrate 600 plus D) celecoxib 200 mg capsule 200 mg PO QAM 07/23/22 07/23/22 History cholecalciferol (vitamin D3) 50 2,000 unit PO DAILY 07/23/22 07/23/22 History mcg (2,000 unit) capsule coenzyme Q10 100 mg capsule 100 mg PO DAILY 07/23/22 07/23/22 History (CoQ-10) cyanocobalamin (vitamin B-12) 1,000 mcg PO DAILY 07/23/22 07/23/22 History 1,000 mcg tablet (Vitamin B-12) diltiazem HCl 120 mg 120 mg PO DAILY 07/23/22 07/23/22 History capsule,extended release 24 hr duloxetine 30 mg capsule,delayed 30 mg PO DAILY 07/23/22 07/23/22 History release famotidine 40 mg tablet 40 mg PO BID 07/23/22 07/23/22 History furosemide 40 mg tablet 40 mg PO AMHS 07/23/22 07/23/22 History gabapentin 100 mg capsule 100 mg PO BID 07/23/22 07/23/22 History hydrocodone 5 mg-acetaminophen 325 1 tab PO Q6 PRN Pain 07/23/22 07/23/22 History mg tablet ipratropium bromide 21 mcg (0.03 2 spray intranasal BID PRN Nasal 07/23/22 07/23/22 History %) nasal spray Congestion levothyroxine 100 mcg tablet 100 mcg PO DAILY 07/23/22 07/23/22 History lidocaine 5 % topical patch 1 patch topical DAILY 07/23/22 07/23/22 History lorazepam 0.5 mg tablet 0.5 mg PO BID PRN Anxiety 07/23/22 07/23/22 History losartan 50 mg tablet 50 mg PO DAILY 07/23/22 07/23/22 History magnesium 250 mg tablet 250 mg PO DAILY 07/23/22 07/23/22 History mirtazapine 15 mg tablet 7.5 mg PO HS 07/23/22 07/23/22 History multivitamin 1 tab PO DAILY 07/23/22 07/23/22 History omega-3 fatty acids 1,000 mg PO DAILY 07/23/22 07/23/22 History potassium gluconate 595 mg (99 mg) 595 mg PO DAILY 07/23/22 07/23/22 History tablet pyridoxine (vitamin B6) 100 mg 100 mg PO DAILY 07/23/22 07/23/22 History tablet (Vitamin B-6) spironolactone 25 mg tablet 25 mg PO BID 07/23/22 07/23/22 History tizanidine 4 mg tablet 4 mg PO Q8 PRN Muscle Spasm 07/23/22 07/23/22 History Patient History Medical History MAILE (acute kidney injury) Anemia Edema, lower extremity Hyperlipidemia Hypertension Hypothyroid Insomnia Neuropathy Osteoarthritis of multiple joints Permanent atrial fibrillation Surgical History No pertinent past surgical history Family History Sister Breast cancer Father Myocardial infarction Denies family history of Ovarian cancer Prostate cancer Colorectal cancer Social History Smoking Status: Never smoker Second Hand Exposure: No; Hx Alcohol Use: No Hx Substance Use: No Preferred Language: Mongolian Communication Ability: Effective Visual Impairment: No Limitations Hearing Ability: Normal Firefighting Equipment Specialist Required: No Beliefs That Will Affect Care: None marital status: Current Living Situation: Family Current Living Situation Comment: lives w/ son How many Children do You have: 4 Other Information That Helps Us Care for You: No Feels Safe at Home: Yes Safety Concerns: Feels Safe At This Time Childhood Exposure to Second-Hand Smoke: No caffeine: Yes during the past year weight has: remained stable Assistive Devices: Walker Review of Systems Review of Systems: All systems reviewed & are unremarkable except as noted in HPI & below Physical Exam Physical Exam: She is laying in a semireclined position in no acute distress Alert and oriented x3 Positive logrolling on the left, negative on the right She has a 3+ to 4/5 left EHL Strength is otherwise intact 5 5 dorsiflexion, plantarflexion, quadriceps, hamstrings Constitutional: WD/WN, vitals as above Eyes: normal visual be by confrontation ENMT: external ear and nose normal, oropharynx normal Neck: normal visual inspection Respiratory: normal respiratory effort Cardiovascular: Extremities: normal capillary refill Gastrointestinal (Abdomen): Inspection/Auscultation: abdomen normal to inspection Musculoskeletal: Extremities: + abnormal strength Hip: + log roll test positive Skin: no rashes, warm and dry Neurologic: normal touch/pain/proprioception, moves all extremities and + focal motor deficit Psychiatric: A+Ox3, euthymic affect Eye Contact: good eye contact Speech: normal rate/rhythm/volume of speech Results & Data ([facility]) Vital Signs (Past 12 Hours) Vital Signs Temp Pulse Pulse Resp BP Pulse Ox O2 Del Method 07/24/22 07:40 37.1 C 79 20 107/63 90 Room Air 07/23/22 23:43 37.2 C 97 H 16 102/64 91 Room Air Diagnostic Findings [place], [place] [phone] Magnetic Resonance Report Patient:SHENA RIOJAS Admit Date:07/22/22 MR#:[id number] Address1:[address] [place] [address] Acct ID:[id number] Address2: Date:1935 [facility] Zip:[place] [address] Age:87 Location:[facility] Sex:F Room/Bed:[place] [id number] Att Phy:Carlos Calderón MD Diagnosis:SEVERE HIP PAIN, TACHYCARDIA Adilia Phy:Obey Peacokc CRNP Service Date:07/23/22 Fam Phy: Interpreting Phy:Melvin Willett [facility] Phy:Puma Cary MD Ordering Phy:Idalia Lui PA-C cc: ~ LUMBAR SPINE MRI HISTORY: radicular pain down L leg TECHNIQUE: Multiplanar multisequence MRI of the lumbar spine was performed without the use of contrast. COMPARISON: Lumbar spine radiograph 07/22/2022. FINDINGS: For the purpose of the report the L5-S1 disc space will be located on axial image 27 of 30. No fractures within the lumbar spine. The conus terminates at the L1 level. There is mild disc space narrowing at L1-L2. Moderate disc space narrowing at L2-L3 and L5-S1. Severe disc space narrowing at L3-L4 and L4-L5. There are small endplate osteophytes seen throughout the lumbar spine. Moderate to severe facet degenerative changes throughout the lumbar spine most pronounced at the L5-S1 level. The visualized sacrum is intact. Prevertebral soft tissues are unremarkable. There is 6 mm of anterolisthesis of L5 on S1. L1-L2: Broad-based posterior disc bulge with mild ligamentum and facet hypertrophy resulting in mild to moderate bilateral neural foraminal narrowing. No significant central canal narrowing. L2-L3: Broad-based posterior disc bulge with ligamentum and facet hypertrophy resulting in mild central canal and mild to moderate bilateral neural foraminal narrowing. L3-L4: Broad-based posterior disc bulge with ligamentum and facet hypertrophy resulting in moderate central canal narrowing with the AP diameter measuring 6 mm. There is also mild to moderate bilateral neural foraminal narrowing. L4-L5: Broad-based posterior disc bulge with severe ligamentum and facet hypertrophy resulting in severe central canal narrowing. Best seen on the sagittal sequences the AP diameter is less than 2 mm. This appears to compress the nerve roots at this level. There is also moderate to severe bilateral neural foraminal narrowing. L5-S1: Broad-based posterior disc bulge with ligamentum and facet hypertrophy. In conjunction with the anterolisthesis there is moderate central canal narrowing with the AP diameter measuring 6.3 mm. There is also severe bilateral neural foraminal narrowing. IMPRESSION: 1. Multilevel lumbar spondylosis as described above with severe central canal narrowing at L4-L5 due to a broad-based posterior disc bulge and advanced ligamentum/facet hypertrophy. The central canal measures less than 2 mm in AP diameter resulting in compression of the nerve roots at this level. 2. There is 6 mm of anterolisthesis of L5 on S1. 3. No fractures within the lumbar spine. ACT 112: Negative or not required by law. Electronically signed by: Melvin Willett M.D. 07/23/2022 1:14 PM Dictated:07/23/22 130 Transcribed: 07/23/22 1302
[2022-07-24] MEDS: CeleBREX 200 MG CAP PO SCH (08:58)
[2022-07-24] MEDS: FUROSEMIDE 40 MG TAB PO SCH (08:58)
[2022-07-24] MEDS: APIXABAN 5 MG TABLET PO SCH (08:58)
[2022-07-24] MEDS: PYRIDOXINE HCL 50 MG TAB PO SCH (08:58)
[2022-07-24] MEDS: FAMOTIDINE 40 MG TABLET PO SCH (08:58)
[2022-07-24] MEDS: GABAPENTIN 100 MG CAP PO SCH (08:58)
[2022-07-24] MEDS: CHOLECALCIFEROL 1,000 UNITS 25 MCG TAB PO SCH (08:59)
[2022-07-24] MEDS: DULoxetine HCL 30 MG CAP PO SCH (08:59)
[2022-07-24] MEDS: SIMETHICONE 80 MG CHEW PO PRN ×2 (09:29→19:48)
[2022-07-24] MEDS: traMADol HCL 50 MG TABLET PO PRN ×2 (09:32→22:47)
[2022-07-24] MEDS: LIDOCAINE 5% 1 PATCH TD SCH (11:06)
--- NOTE | 2022-07-24 12:47 | Hospitalist Progress Note ---
Date of Service July 24, 2022 Assessment & Plan (1) Ambulatory dysfunction: Plan: X-rays and CT scan of the lumbar spine, pelvis and hips show severe osteoarthritis as noted, with no signs of fracture - MRI showing severe central canal narrowing L4-5 - Dr. Daigle consulted, out of town this weekend but seen by PA-C * Personally spoke with Dr. Daigle re: MRI findings * Will hold Apixaban for possible surgical intervention on Tuesday * PT/OT eval * Tiered pain control- APAP, Tramadol + Lidocaine patches * Continue Cymbalta, weaning off Neurontin (2) Left lumbar radiculitis: Plan: - As above (3) Permanent atrial fibrillation: Plan: Permanent A. fib/hypertension- - Takes apixaban, diltiazem, furosemide, losartan and spironolactone at home - Given Cardizem CD dose 120mg on 07/23 and BP dropped to 74 systolic, asymptomatic - Losartan held this AM due to borderline low-normal BP - Continue holding Losartan, received a dose of Lasix this AM, will adjust dose to once a day - Give a SMALL NSS bolus of 250 cc x1, repeat BP following bolus - Adjust meds: STOP Diltiazem CD and will consider changing to low dose Metoprolol if BP will allow, otherwise will need to consider Digoxin for rate control - Currently rate controlled and BP low normal, will recheck this afternoon to see if enough room to add low dose BB (4) Osteoarthritis of lumbar spine: Plan: - As above (5) Neuropathy: Plan: - Continue gabapentin, duloxetine (6) Insomnia: Plan: - Continue mirtazapine (7) Hypothyroid: Plan: - Continue levothyroxine Plan Hold Apixaban. PT/OT eval. Family updated at bedside this morning. Will need to made NPO after MN tomorrow in anticipation of possible surgical intervention come Tuesday. D/w Dr. Daigle. Will update Dr. Calderón on plan. Admission and Anticipated Discharge Date Admission Date: July 23, 2022 Subjective Patient seen on daily rounds this morning. She is resting comfortably in bedside chair. Had electric sharp bolting pain and spasms down her left leg when she got up to walk to the bathroom yesterday evening. Pain is not alleviated by narcotics. In addition, she has been trailed on Gabapentin w/o relief and is currently being weaned off of it. She has been recently started on Cymbalta, but again, has not yet had any relief. MRI completed yesterday noted severe central canal narrowing at L4-5 due to posterior disc bulge. She denies bowel/bladder incontinence or saddle anesthesias. No cp or dyspnea. Review of Systems Review of Systems: All systems reviewed and are unremarkable except as noted in HPI and below. Denies fever, chills, fatigue, headache, nasal congestion, sore throat, cough, chest pain, shortness of breath, palpitations, orthopnea, PND, abdominal pain, n/v/d, constipation, dysuria, hematuria, frequency, easy bruising or bleeding, skin lesions or rashes. Physical Exam Physical Exam: GENERAL: 87 yo Well-developed, well-nourished WF. NAD. LUNGS: Clear to auscultation bilaterally. No W/R/R. CARDIOVASCULAR: S1 S2 irregular ABDOMEN: Soft, non-tender and non-distended. BS normoactive x 4 quad. EXTREMITIES: No edema. Non-tender. Peripheral pulses +2/4. Tenderness of L hip joint. No significant tenderness of lumbar spinous processes or paravertebral muscles. No L SI joint tenderness elicited. NEUROLOGIC: A&O x3. Nonfocal. Does have appreciable weakness of LLE compared to RLE PSYCHIATRIC: Cooperative. Appropriate mood and affect. SKIN: Warm, dry, intact. No rashes or lesions. Results & Data Results & Data ([facility]) Vital Signs (Past 12 Hours) Vital Signs Temp Pulse Resp BP Pulse Ox O2 Del Method 07/24/22 07:40 37.1 C 79 20 107/63 90 Room Air Laboratory Results 07/24/22 07:34 07/24/22 07:34 Diagnostic Findings Lumbar Spine MRI 07/23/22 11:23 LUMBAR SPINE MRI HISTORY: radicular pain down L leg TECHNIQUE: Multiplanar multisequence MRI of the lumbar spine was performed without the use of contrast. COMPARISON: Lumbar spine radiograph 07/22/2022. FINDINGS: For the purpose of the report the L5-S1 disc space will be located on axial image of 30. No fractures within the lumbar spine. The conus terminates at the L1 level. There is mild disc space narrowing at L1-L2. Moderate disc space narrowing at L2-L3 and L5-S1. Severe disc space narrowing at L3-L4 and L4-L5. There are small endplate osteophytes seen throughout the lumbar spine. Moderate to severe facet degenerative changes throughout the lumbar spine most pronounced at the L5-S1 level. The visualized sacrum is intact. Prevertebral soft tissues are unremarkable. There is 6 mm of anterolisthesis of L5 on S1. L1-L2: Broad-based posterior disc bulge with mild ligamentum and facet hypertrophy resulting in mild to moderate bilateral neural foraminal narrowing. No significant central canal narrowing. L2-L3: Broad-based posterior disc bulge with ligamentum and facet hypertrophy resulting in mild central canal and mild to moderate bilateral neural foraminal narrowing. L3-L4: Broad-based posterior disc bulge with ligamentum and facet hypertrophy resulting in moderate central canal narrowing with the AP diameter measuring 6 mm. There is also mild to moderate bilateral neural foraminal narrowing. L4-L5: Broad-based posterior disc bulge with severe ligamentum and facet hypertrophy resulting in severe central canal narrowing. Best seen on the sagittal sequences the AP diameter is less than 2 mm. This appears to compress the nerve roots at this level. There is also moderate to severe bilateral neural foraminal narrowing. L5-S1: Broad-based posterior disc bulge with ligamentum and facet hypertrophy. In conjunction with the anterolisthesis there is moderate central canal narrowing with the AP diameter measuring 6.3 mm. There is also severe bilateral neural foraminal narrowing. IMPRESSION: 1. Multilevel lumbar spondylosis as described above with severe central canal narrowing at L4-L5 due to a broad-based posterior disc bulge and advanced ligamentum/facet hypertrophy. The central canal measures less than 2 mm in AP diameter resulting in compression of the nerve roots at this level. 2. There is 6 mm of anterolisthesis of L5 on S1. 3. No fractures within the lumbar spine. ACT 112: Negative or not required by law. Electronically signed by: Melvin Willett M.D. 07/23/2022 1:14 PM PG Care Time/CCT Total # of Minutes Spent Total Time Spent with Patient: Total time spent is greater than 50% in coordination of care (as documented) at patient's floor/unit and/or counseling patient: Coding Level of Care Code 17247 Subseq Hosp Care Lvl 2 Diagnoses Ambulatory dysfunction R26.2 Left lumbar radiculitis M54.16 Permanent atrial fibrillation I48.21 Osteoarthritis of lumbar spine M47.816 Neuropathy G62.9 Insomnia G47.00 Hypothyroid E03.9
[2022-07-24] MEDS: MIRTAZAPINE TAB 15 MG TAB PO SCH (21:20)
[2022-07-25] MEDS: LEVOTHYROXINE SODIUM 100 MCG TABLET PO SCH (05:40)
[2022-07-25 07:47] LABS: Basophils # (auto) 0.05 K/uL (0-0.2); Basophils % (auto) 0.7 %; Eosinophils % (auto) 1.3 %; Hematocrit (blood only) 28.1 % (34.1-44.9); Hemoglobin 9.7 g/dl (12.0-16.0); Immature Granulocytes # (auto) 0.03 K/uL (0.00-0.02); Immature Granulocytes % (auto) 0.4 %; Lymphocytes # (auto) 1.46 K/uL (1.2-3.4); Lymphocytes % (auto) 19.6 %; Mean Corpuscular Hemoglobin 32.9 pg (25.0-34.0); Mean Corpuscular Hgb Conc 34.5 g/dL (32.0-36.0); Mean Corpuscular Volume 95.3 fL (80.0-100.0); Monocytes % (auto) 13.4 %; Neutrophils # (auto) 4.82 K/uL (1.4-6.5); Neutrophils % (auto) 64.6 %; Platelet Count 329 K/uL (130-400); RDW Coefficient of Variation 14.2 % (11.5-14.5); RDW Standard Deviation 49.3 fL (36.4-46.3); Red Blood Count 2.95 M/uL (3.93-5.22); White Blood Count 7.46 K/ul (4.8-10.8)
[2022-07-25 08:00] LABS: INR 1.1 (0.9-1.1); Partial Thromboplastin Time 28.2 Seconds (21.0-31.0)
[2022-07-25 08:11] LABS: Albumin Globulin Ratio 1.7 (0.9-2); Albumin Level 3.4 gm/dl (3.4-5.0); BUN Creatinine Ratio 15.9 (10-20); Bilirubin,Total 0.4 mg/dl (0.2-1.0); Calcium 9.1 mg/dl (8.5-10.1); Creatinine Clr Calc Pharmacy 41.2 ml/min; Est GFR (Non-African American) 58.7 ml/min; Potassium 3.9 mmol/L (3.5-5.1); Total Protein 5.4 gm/dl (6.0-8.3)
[2022-07-25] MEDS: PYRIDOXINE HCL 50 MG TAB PO SCH (08:32)
[2022-07-25] MEDS: FAMOTIDINE 40 MG TABLET PO SCH (08:32)
[2022-07-25] MEDS: LIDOCAINE 5% 1 PATCH TD SCH (08:32)
[2022-07-25] MEDS: FUROSEMIDE 40 MG TAB PO SCH (08:33)
[2022-07-25] MEDS: SIMETHICONE 80 MG CHEW PO PRN (08:33)
[2022-07-25] MEDS: CHOLECALCIFEROL 1,000 UNITS 25 MCG TAB PO SCH (08:33)
[2022-07-25] MEDS: GABAPENTIN 100 MG CAP PO SCH (08:33)
[2022-07-25] MEDS: CeleBREX 200 MG CAP PO SCH (08:34)
[2022-07-25] MEDS: DULoxetine HCL 30 MG CAP PO SCH (08:34)
[2022-07-25] MEDS: METOPROLOL TARTRATE 25 MG TAB PO SCH ×2 (10:19→20:22)
--- NOTE | 2022-07-25 12:37 | Hospitalist Progress Note ---
Date of Service July 25, 2022 Assessment & Plan (1) Ambulatory dysfunction: Plan: X-rays and CT scan of the lumbar spine, pelvis and hips show severe osteoarthritis as noted, with no signs of fracture - MRI showing severe central canal narrowing L4-5 - Dr. Daigle consulted, out of town this weekend but seen by PA-C * Personally spoke with Dr. Daigle re: MRI findings * Will hold Apixaban for possible surgical intervention on Tuesday * PT/OT eval ordered-OT recommending home with HH, refused PT eval * Tiered pain control- APAP, Tramadol + Lidocaine patches (had no prior relief with steroids) * Continue Cymbalta, weaning off Neurontin - Will make NPO after MN for possible surgical intervention on 07/26 (2) Left lumbar radiculitis: Plan: - As above (3) Permanent atrial fibrillation: Plan: Permanent A. fib/hypertension- - Takes apixaban, diltiazem, furosemide, losartan and spironolactone at home - Given Cardizem CD dose 120mg on 07/23 and BP dropped to 74 systolic, asymptomatic - Losartan held this AM due to borderline low-normal BP - Continue holding Losartan, received a dose of Lasix this AM, will adjust dose to once a day - Give a SMALL NSS bolus of 250 cc x1, repeat BP following bolus - Adjust meds: STOP Diltiazem CD and will consider changing to low dose Metoprolol if BP will allow, otherwise will need to consider Digoxin for rate control - Currently rate controlled and BP low normal, BP 07/25 128/79, will trial Lopressor 12.5mg BID (4) Osteoarthritis of lumbar spine: Plan: - As above (5) Neuropathy: Plan: - Continue gabapentin, duloxetine (6) Insomnia: Plan: - Continue mirtazapine (7) Hypothyroid: Plan: - Continue levothyroxine Plan Hold Apixaban. PT/OT eval. NPO after MN. Plan d/w Dr. Calderón. Admission and Anticipated Discharge Date Admission Date: July 23, 2022 Subjective Patient seen on daily rounds this morning. She is resting comfortably in bedside chair. Pain is controlled at present but still having spasms and electric bolt pain when she attempts to ambulate. She denies bowel/bladder incontinence or saddle anesthesias. No cp or dyspnea. Review of Systems Review of Systems: All systems reviewed and are unremarkable except as noted in HPI and below. Denies fever, chills, fatigue, headache, nasal congestion, sore throat, cough, chest pain, shortness of breath, palpitations, orthopnea, PND, abdominal pain, n/v/d, constipation, dysuria, hematuria, frequency, easy bruising or bleeding, skin lesions or rashes. Physical Exam Physical Exam: GENERAL: 87 yo Well-developed, well-nourished WF. NAD. LUNGS: Clear to auscultation bilaterally. No W/R/R. CARDIOVASCULAR: S1 S2 irregular with controlled rate ABDOMEN: Soft, non-tender and non-distended. BS normoactive x 4 quad. EXTREMITIES: No edema. Non-tender. Peripheral pulses +2/4. Tenderness of L hip joint. No significant tenderness of lumbar spinous processes or paravertebral muscles. No L SI joint tenderness elicited. NEUROLOGIC: A&O x3. Nonfocal. Does have appreciable weakness of LLE compared to RLE PSYCHIATRIC: Cooperative. Appropriate mood and affect. SKIN: Warm, dry, intact. No rashes or lesions. Results & Data Results & Data ([facility]) Vital Signs (Past 12 Hours) Vital Signs Temp Resp BP Pulse Ox O2 Del Method 07/25/22 07:39 36.7 C 16 128/79 92 Room Air Laboratory Results 07/25/22 07:17 07/25/22 07:17 PG Care Time/CCT Total # of Minutes Spent Total Time Spent with Patient: Total time spent is greater than 50% in coordination of care (as documented) at patient's floor/unit and/or counseling patient: Coding Level of Care Code 16132 Subseq Hosp Care Lvl 2 Diagnoses Ambulatory dysfunction R26.2 Left lumbar radiculitis M54.16 Permanent atrial fibrillation I48.21 Osteoarthritis of lumbar spine M47.816 Neuropathy G62.9 Insomnia G47.00 Hypothyroid E03.9
[2022-07-25] MEDS: MIRTAZAPINE TAB 15 MG TAB PO SCH (20:22)
[2022-07-26] MEDS: LEVOTHYROXINE SODIUM 100 MCG TABLET PO SCH (04:55)
[2022-07-26] MEDS: METOPROLOL TARTRATE 25 MG TAB PO SCH ×2 (09:01→20:33)
[2022-07-26] MEDS: FUROSEMIDE 40 MG TAB PO SCH (09:01)
[2022-07-26] MEDS: LIDOCAINE 5% 1 PATCH TD SCH (09:01)
[2022-07-26] MEDS: DULoxetine HCL 30 MG CAP PO SCH (09:01)
[2022-07-26] MEDS: FAMOTIDINE 40 MG TABLET PO SCH (09:01)
[2022-07-26] MEDS: CHOLECALCIFEROL 1,000 UNITS 25 MCG TAB PO SCH (09:01)
[2022-07-26] MEDS: GABAPENTIN 100 MG CAP PO SCH (09:01)
[2022-07-26] MEDS: PYRIDOXINE HCL 50 MG TAB PO SCH (09:01)
--- NOTE | 2022-07-26 09:34 | Anesthesiology Consultation ---
Date of Service July 26, 2022 Assessment & Plan Chart Review Chart Review: Acceptable Risk for Surgery and Patient NOT seen in Pre Admission Testing History Surgery Operation Date: 07/26/22 08:20 Proposed Procedures p L4-S1 Decompression Possible Fusion - Tigre Daigle DO Height/Weight Height: 5 ft 2 in Weight: 72.5 kg Allergies Allergy/AdvReac Type Severity Reaction Status Date / Time Penicillins Allergy Unknown Unknown Unverified 07/23/22 02:09 [id number] Reductase AdvReac Severe Muscle Pain Unverified 07/23/22 02:09 Inhibitor Medications Home Medications Medication Instructions Recorded Confirmed Last Taken Bifidobacterium infantis 4 mg 4 mg PO DAILY 07/23/22 07/23/22 Unknown capsule (Align) acetaminophen 650 mg 650 mg PO TID 07/23/22 07/23/22 Unknown tablet,extended release apixaban 5 mg tablet (Eliquis) 5 mg PO BID 07/23/22 07/23/22 07/22/22 09:00 ascorbic acid (vitamin C) 100 mg 100 mg PO DAILY 07/23/22 07/23/22 Unknown tablet (Vitamin C) calcium carbonate 600 mg-vitamin 1 tab PO BID 07/23/22 07/23/22 Unknown D3 20 mcg (800 unit) chewable tablet (Caltrate 600 plus D) celecoxib 200 mg capsule 200 mg PO QAM 07/23/22 07/23/22 Unknown cholecalciferol (vitamin D3) 50 2,000 unit PO DAILY 07/23/22 07/23/22 Unknown mcg (2,000 unit) capsule coenzyme Q10 100 mg capsule 100 mg PO DAILY 07/23/22 07/23/22 Unknown (CoQ-10) cyanocobalamin (vitamin B-12) 1,000 mcg PO DAILY 07/23/22 07/23/22 Unknown 1,000 mcg tablet (Vitamin B-12) diltiazem HCl 120 mg 120 mg PO DAILY 07/23/22 07/23/22 Unknown capsule,extended release 24 hr duloxetine 30 mg capsule,delayed 30 mg PO DAILY 07/23/22 07/23/22 Unknown release famotidine 40 mg tablet 40 mg PO BID 07/23/22 07/23/22 Unknown furosemide 40 mg tablet 40 mg PO [facility] 07/23/22 07/23/22 Unknown gabapentin 100 mg capsule 100 mg PO BID 07/23/22 07/23/22 Unknown hydrocodone 5 mg-acetaminophen 325 1 tab PO Q6 PRN Pain 07/23/22 07/23/22 Unknown mg tablet ipratropium bromide 21 mcg (0.03 2 spray intranasal BID PRN Nasal 07/23/22 07/23/22 Unknown %) nasal spray Congestion levothyroxine 100 mcg tablet 100 mcg PO DAILY 07/23/22 07/23/22 Unknown lidocaine 5 % topical patch 1 patch topical DAILY 07/23/22 07/23/22 Unknown lorazepam 0.5 mg tablet 0.5 mg PO BID PRN Anxiety 07/23/22 07/23/22 Unknown losartan 50 mg tablet 50 mg PO DAILY 07/23/22 07/23/22 Unknown magnesium 250 mg tablet 250 mg PO DAILY 07/23/22 07/23/22 Unknown mirtazapine 15 mg tablet 7.5 mg PO HS 07/23/22 07/23/22 Unknown multivitamin 1 tab PO DAILY 07/23/22 07/23/22 Unknown omega-3 fatty acids 1,000 mg PO DAILY 07/23/22 07/23/22 Unknown potassium gluconate 595 mg (99 mg) 595 mg PO DAILY 07/23/22 07/23/22 Unknown tablet pyridoxine (vitamin B6) 100 mg 100 mg PO DAILY 07/23/22 07/23/22 Unknown tablet (Vitamin B-6) spironolactone 25 mg tablet 25 mg PO BID 07/23/22 07/23/22 Unknown tizanidine 4 mg tablet 4 mg PO Q8 PRN Muscle Spasm 07/23/22 07/23/22 Unknown Active Medications Generic Name Dose Route Start Last Admin Trade Name Gladis PRN Reason Stop Dose Admin Apixaban 5 mg 07/23/22 12:00 07/24/22 08:58 Apixaban 5 Mg Tablet PO 08/22/22 11:59 5 mg BID STACIA Administration Celecoxib 200 mg 07/23/22 09:00 07/26/22 09:46 Celebrex 200 Mg Cap PO 08/22/22 08:59 Not Given QAM STACIA Duloxetine HCl 30 mg 07/23/22 09:00 07/26/22 09:01 Duloxetine Hcl 30 Mg Cap PO 08/22/22 08:59 30 mg DAILY STACIA Administration Famotidine 40 mg 07/23/22 09:00 07/26/22 09:01 Famotidine 40 Mg Tablet PO 08/22/22 08:59 40 mg DAILY STACIA Administration Furosemide 40 mg 07/24/22 09:00 07/26/22 09:01 Furosemide 40 Mg Tab PO 08/23/22 08:59 40 mg DAILY STACIA Administration Gabapentin 100 mg 07/25/22 09:00 07/26/22 09:01 Gabapentin 100 Mg Cap PO 08/24/22 08:59 100 mg DAILY STACIA Administration Levothyroxine Sodium 100 mcg 07/23/22 09:00 07/26/22 04:55 Levothyroxine Sodium 100 Mcg Tablet PO 08/22/22 08:59 100 mcg DAILYBB STACIA Administration Lidocaine 1 patch 07/23/22 09:00 07/26/22 09:01 Lidocaine 5% 1 Patch TD 08/22/22 08:59 Not Given DAILY STACIA Lorazepam 0.5 mg 07/23/22 08:36 07/24/22 21:24 Lorazepam 0.5 Mg Tab PO 08/22/22 08:35 0.5 mg BID PRN Administration Anxiety Mirtazapine 7.5 mg 07/23/22 21:00 07/25/22 20:22 Mirtazapine Tab 15 Mg Tab PO 08/22/22 20:59 7.5 mg HS STACIA Administration Miscellaneous 1 each 07/23/22 21:00 07/25/22 20:23 Remove Lidoderm Patch N/A 08/22/22 20:59 1 each DAILY@2100 STACIA Administration Pyridoxine HCl 100 mg 07/23/22 09:00 07/26/22 09:01 Pyridoxine Hcl 50 Mg Tab PO 08/22/22 08:59 100 mg DAILY STACIA Administration Simethicone 80 mg 07/23/22 15:03 07/25/22 08:33 Simethicone 80 Mg Chew PO 08/22/22 15:02 80 mg Q6H PRN Administration Gas or Constipation Tizanidine HCl 4 mg 07/23/22 08:36 07/23/22 09:40 Tizanidine Hcl 4 Mg Tablet PO 08/22/22 08:35 4 mg Q8H PRN Administration Muscle Spasm Tramadol HCl 100 mg 07/23/22 11:27 07/24/22 22:47 Tramadol Hcl 50 Mg Tablet PO 08/22/22 11:26 100 mg Q4H PRN Administration Pain (7-10) Vitamin D 2,000 units 07/23/22 09:00 07/26/22 09:01 Cholecalciferol 1,000 Units 25 Mcg Tab PO 08/22/22 08:59 2,000 units DAILY STACIA Administration Past Medical History Medical History MAILE (acute kidney injury) Anemia Edema, lower extremity Hyperlipidemia Hypertension Hypothyroid Insomnia Neuropathy Osteoarthritis of multiple joints Permanent atrial fibrillation Past Family History Family History Sister Breast cancer Father Myocardial infarction Denies family history of Ovarian cancer Prostate cancer Colorectal cancer Past Surgical History Surgical History No pertinent past surgical history Social History Smoking Status: Never smoker Hx Alcohol Use: No Hx Substance Use: No Physical Exam Vital Signs Last Vital Signs Temp 37 C 07/26/22 12:57 Pulse 110 H 07/26/22 12:57 Resp 20 07/26/22 12:57 BP 153/96 H 07/26/22 12:57 Pulse Ox 96 07/26/22 12:57 O2 Del Method 07/26/22 12:57 O2 Flow Rate 2 07/23/22 10:23 Testing Laboratory Results 07/25/22 07:17 07/25/22 07:17 PT 12.0 Seconds (9.0-12.0) 07/25/22 07:17 INR 1.1 (0.9-1.1) 07/25/22 07:17 APTT 28.2 Seconds (21.0-31.0) 07/25/22 07:17 Blood Type AB Positive 07/26/22 09:54 Antibody Screen NEGATIVE 07/26/22 09:54
[2022-07-26] MEDS: CeleBREX 200 MG CAP PO SCH (09:46)
--- NOTE | 2022-07-26 11:05 | Hospitalist Progress Note ---
Date of Service July 26, 2022 Assessment & Plan (1) Ambulatory dysfunction: Plan: X-rays and CT scan of the lumbar spine, pelvis and hips show severe osteoarthritis as noted, with no signs of fracture - MRI showing severe central canal narrowing L4-5 - Dr. Daigle consulted, out of town this weekend but seen by PA-C * Personally spoke with Dr. Daigle re: MRI findings * Will hold Apixaban for possible surgical intervention on Tuesday * PT/OT eval ordered-OT recommending home with HH, refused PT eval * Tiered pain control- APAP, Tramadol + Lidocaine patches (had no prior relief with steroids) * Continue Cymbalta, weaning off Neurontin - NPO for OR today with Dr. Daigle for decompression (2) Left lumbar radiculitis: Plan: - As above (3) Permanent atrial fibrillation: Plan: Permanent A. fib/hypertension- - Takes apixaban, diltiazem, furosemide, losartan and spironolactone at home - Given Cardizem CD dose 120mg on 07/23 and BP dropped to 74 systolic, asymptomatic - Losartan held this AM due to borderline low-normal BP - Continue holding Losartan, received a dose of Lasix this AM, will adjust dose to once a day - Give a SMALL NSS bolus of 250 cc x1, repeat BP following bolus - Adjust meds: STOP Diltiazem CD and will consider changing to low dose Metoprolol if BP will allow, otherwise will need to consider Digoxin for rate control - Currently rate controlled and BP low normal, BP 07/25 128/79, will trial Lopressor 12.5mg BID- increase 07/26 to 25mg BID (4) Osteoarthritis of lumbar spine: Plan: - As above (5) Neuropathy: Plan: - Continue gabapentin, duloxetine (6) Insomnia: Plan: - Continue mirtazapine (7) Hypothyroid: Plan: - Continue levothyroxine Plan Can resume Apixaban this evening (would wait at least 8 hours following surgery)- if <8 hrs then will resume tomorrow morning. Follow up labs tomorrow AM. Plan to be d/w Dr. Calderón. Admission and Anticipated Discharge Date Admission Date: July 23, 2022 Subjective Patient seen on daily rounds this morning. She is for OR today with Dr. Daigle for lumbar decompression. Review of Systems Review of Systems: All systems reviewed and are unremarkable except as noted in HPI and below. Denies fever, chills, fatigue, headache, nasal congestion, sore throat, cough, chest pain, shortness of breath, palpitations, orthopnea, PND, abdominal pain, n/v/d, constipation, dysuria, hematuria, frequency, easy bruising or bleeding, skin lesions or rashes. Physical Exam Physical Exam: GENERAL: 87 yo Well-developed, well-nourished WF. NAD. LUNGS: Clear to auscultation bilaterally. No W/R/R. CARDIOVASCULAR: S1 S2 irregular with controlled rate ABDOMEN: Soft, non-tender and non-distended. BS normoactive x 4 quad. EXTREMITIES: No edema. Non-tender. Peripheral pulses +2/4. Tenderness of L hip joint. No significant tenderness of lumbar spinous processes or paravertebral muscles. No L SI joint tenderness elicited. NEUROLOGIC: A&O x3. Nonfocal. Does have appreciable weakness of LLE compared to RLE PSYCHIATRIC: Cooperative. Appropriate mood and affect. SKIN: Warm, dry, intact. No rashes or lesions. Results & Data Results & Data ([facility]) Vital Signs (Past 12 Hours) Vital Signs Temp Pulse Resp BP Pulse Ox O2 Del Method 07/26/22 07:03 36.6 C 86 18 150/76 H 94 Room Air PG Care Time/CCT Total # of Minutes Spent Total Time Spent with Patient: Total time spent is greater than 50% in coordination of care (as documented) at patient's floor/unit and/or counseling patient: Coding Level of Care Code 64066 Subseq Hosp Care Lvl 2 Diagnoses Ambulatory dysfunction R26.2 Left lumbar radiculitis M54.16 Permanent atrial fibrillation I48.21 Osteoarthritis of lumbar spine M47.816 Neuropathy G62.9 Insomnia G47.00 Hypothyroid E03.9
[2022-07-26] MEDS ORDERED: ONDANSETRON INJ 2 MG/ML 2 ML VIAL ONE ×2 (12:48→16:40)
[2022-07-26] MEDS ORDERED: DEXAMETHASONE SOD INJ 4 MG/ML VIAL ONE (12:48)
[2022-07-26] MEDS ORDERED: fentaNYL citrate 100 MCG/2 ML VIAL ONE ×4 (12:48→16:40)
[2022-07-26] MEDS ORDERED: ROCURONIUM BROMIDE 10 MG/ML 5 ML VIAL IV ONE (12:48)
[2022-07-26] MEDS ORDERED: LIDOCAINE 2% 20 MG/ML 5 ML SYR IV ONE (12:48)
[2022-07-26] MEDS ORDERED: PROPOFOL IV EMULSION 10 MG/ML 20 ML VIAL IV ONE (12:48)
--- NOTE | 2022-07-26 13:37 | History & Physical Bridge Note ---
Date of Service July 26, 2022 History & Physical Bridge Note I have examined the patient, reviewed the History & Physical and in the interval since the performance of the History & Physical I have noted the following changes of clinical significance: no changes noted Lumbar decompression with possible fusion L4-L5 L5-S1.
[2022-07-26] MEDS ORDERED: ceFAZolin 2,000 MG/15 ML IV PUSH IV ONE (13:44)
[2022-07-26] MEDS ORDERED: ceFAZolin 2000MG 2,000 MG/15 ML SYR IV ONE (13:46)
[2022-07-26] MEDS ORDERED: BUPIVACAINE/EPINEPHRINE 0.25% 1:200,000 30 ML VIAL ONE (13:47)
[2022-07-26] MEDS ORDERED: ePHEDrine sulfate 50 MG/ML AMP ONE (15:00)
[2022-07-26] MEDS ORDERED: PHENYLEPHRINE HCL 10 MG/ML VIAL ONE (15:43)
[2022-07-26] MEDS ORDERED: FLOSEAL HEMOSTATIC MATRIX 10ML TOP ONE ×2 (15:44→16:13)
[2022-07-26] MEDS ORDERED: ESMOLOL HCL INJ 10 MG/ML 10ML VIAL IV ONE (16:22)
--- NOTE | 2022-07-26 16:39 | Operative Report ---
Post Operative Report Pre & Post Diagnosis Operation Date: 07/26/22 08:20 Preop diagnosis: Lumbar spinal stenosis with spondylolisthesis and radiculopathy Postop diagnosis: Same I identified the patient and participated in the time-out.: Yes Procedure Operation Date: 07/26/22 08:20 #1 lumbar decompression bilateral medial facetectomies and foraminotomies L3-L4, L4-5 and L5-S1. #2 posterior spinal fusion L4-L5 L5-S1. #3 placement of posterior instrumentation L4-S1. #4 interbody fusion L5-S1. #5 placement of Spira 9 x 26 mm at L5-S1. #6 placement locally harvested morselized autograft in the posterior gutters per #7 placement of I factor in the interbody space and infuse collagen sponge, and master graft in the posterior lateral gutters. Surgeon Tigre Daigle DO [employer] Specialist Shanita Mendieta Estimated Blood Loss 100 Findings Consistent with Post-Op Diagnosis Specimens None Indications This is an 87-year-old female who presents with severe left leg pain and inability to ambulate is here for urgent decompression fusion. Description of Procedure Patient met with identified informed consent obtained. Patient was then taken to the operative suite underwent a patient placed in a prone position on the Avila table on top Harris frame. All bony prominences well-padded eyes inspected to ensure no external pressure placed upon the. This point lumbar spine was prepped and draped no sterile fashion. Sharp dissection with the assistance of Bovie cautery was performed down to and exposing the lamina and transverse processes of L4-L5 and sacral ala bilaterally. From caudal to cephalad fashion complete laminectomy L5 L4 and partial laminectomy of L3 was performed including bilateral medial facetectomies foraminotomies addressing severe spinal stenosis. Pedicle screws were then placed in L4-L5 and S1 levels bilaterally with assistance of fluoroscopy. By way of a transforaminal portion left complete discectomy of L5-S1 was performed endplates curetted to subcortical bleeding bone and a 9 x 26 mm spiral cage with I factor tapped in position. Rods were then locked into final position bilaterally. The transv erse processes of L4-L5 and sacral ala burred to subcortical bleeding bone. Infuse collagen sponge mass graft local autograft was placed in the posterior gutters. 15 round JAVAN drain inserted. The incision was then closed with 1 Vicryl the fascia 2-0 Vicryl subcutaneously and 4 Monocryl for final skin closure. Steri-Strip sterile dressings placed. Patient waken taken PACU stable condition. Please note spinal cord monitoring was utilized at the procedure no changes noted. Lastly Shanita Mendieta was present through out the procedure and while the patient positioning complex portions of the surgery.. I attest to the content of the Intraoperative Record and any orders documented therein. Any exceptions are noted below.
--- NOTE | 2022-07-26 17:25 | Fluoroscopy Report ---
FL lumbar spine 2-3V CLINICAL HISTORY: L4-S1 DFI TECHNIQUE: 2 views were obtained with the C-arm in the OR with the above procedure. Total fluoroscopy time was 27 seconds. Total skin dose was 20.55 mGy. Comparison: Comparison is made to CT pelvis 07/23/2022 FINDINGS/IMPRESSION: Intraoperative images were obtained of L4-S1 discectomy and fusion. Please correlate with intraoperative fluoroscopy and operative report. ACT 112: Negative or not required by law. Electronically signed by: Kota Dasilva M.D. 07/26/2022 5:23 PM
--- NOTE | 2022-07-26 17:48 | Anesthesiology Progress Note ---
Date of Service July 26, 2022 Anesthesia Post Procedure Vital Signs Vital Signs: Temp Pulse Pulse Pulse Resp BP Pulse Ox 07/26/22 17:35 36.8 C 106 H 16 152/98 H 96 07/26/22 17:25 120 H 16 135/85 98 07/26/22 17:15 111 H 16 128/81 91 07/26/22 17:05 114 H 18 138/79 96 07/26/22 16:55 117 H 14 126/78 96 07/26/22 16:47 36.7 C 110 H 14 167/107 H 98 07/26/22 12:57 37 C 110 H 20 153/96 H 96 07/26/22 07:03 36.6 C 86 18 150/76 H 94 07/25/22 20:20 36.9 C 82 18 123/73 93 O2 Del Method O2 Flow Rate 07/26/22 17:35 Nasal Cannula 2 07/26/22 17:25 Nasal Cannula 2 07/26/22 17:15 Nasal Cannula 2 07/26/22 17:05 Oxymask 5 07/26/22 16:55 Oxymask 5 07/26/22 16:47 Oxymask 5 07/26/22 12:57 Room Air 07/26/22 07:03 Room Air 07/25/22 20:20 Room Air Pain Intensity Back: Pain Intensity: 8 Left Leg: Pain Intensity: 2 Transfer of Care Handoff Completed per policy Notes Mental Status: alert / awake / arousable and participated in evaluation Patient Amnestic to Procedure: Yes Nausea / Vomiting: adequately controlled Pain: adequately controlled Airway Patency, RR, SpO2: stable & adequate BP & HR: stable & adequate Hydration State: stable & adequate Anesthetic Complications: no major complications apparent and Pt Satisfied with anesthetic care
[2022-07-26] MEDS ORDERED: ACETAMINOPHEN 500 MG TAB PO PRN (18:16)
[2022-07-26] MEDS ORDERED: bisacodyL 10 MG SUPP PR PRN (18:16)
[2022-07-26] MEDS ORDERED: ONDANSETRON INJ 2 MG/ML 2 ML VIAL IV PRN (18:16)
[2022-07-26] MEDS ORDERED: HYDROmorphone INJ 0.5 MG/0.5 ML SYR IV PRN (18:16)
[2022-07-26] MEDS ORDERED: hydrOXYzine HCl 25 MG TAB PO PRN (18:16)
[2022-07-26] MEDS ORDERED: ALUMINUM/MAGNESIUM SUSP 30 ML UDC PO PRN (18:16)
[2022-07-26] MEDS ORDERED: LORazepam 0.5 MG TAB PO PRN (18:16)
[2022-07-26] MEDS ORDERED: ACETAMINOPHEN 1,000 MG/100 ML VIAL IV PRN (18:16)
[2022-07-26] MEDS ORDERED: LORazepam 0.5 MG in SYRINGE 0.25 ML IV PRN (18:16)
[2022-07-26] MEDS ORDERED: PROMETHAZINE HCL 12.5 MG in SODIUM CHLORIDE 0.9% 50 ML IV PRN (18:16)
[2022-07-26] MEDS ORDERED: oxyCODONE HCL IR 5 MG TAB (IMMEDIATE RELEASE) PO PRN (18:16)
[2022-07-26] MEDS ORDERED: HYDROmorphone INJ 1 MG/ML SYRINGE IV PRN (18:16)
[2022-07-26] MEDS ORDERED: MAGNESIUM HYDROXIDE SUSP 30 ML UDC PO PRN (18:16)
[2022-07-26] MEDS ORDERED: METOCLOPRAMIDE HCL INJ 5 MG/ML 2 ML VIAL IV PRN (18:16)
[2022-07-26] MEDS ORDERED: SOD PHOSPHATE/SOD BIPHOSPHATE ENEMA 132 ML BTL PR PRN (18:16)
[2022-07-26] MEDS ORDERED: ONDANSETRON 4 MG OD TAB PO PRN (18:16)
[2022-07-26] MEDS ORDERED: NALOXONE HCL 0.4 MG/1 ML VIAL/CARP IV PRN (18:16)
[2022-07-26] MEDS ORDERED: diphenhydrAMINE Capsule 25 MG CAP PO PRN (18:16)
[2022-07-26] MEDS ORDERED: traMADol HCL 50 MG TABLET PO PRN (18:16)
[2022-07-26] MEDS ORDERED: FAMOTIDINE 20 MG TAB PO PRN (18:16)
[2022-07-26] MEDS: SODIUM CHLORIDE 0.9% 1000ML 1,000 ML IV SCH (18:32)
[2022-07-26] MEDS: MIRTAZAPINE TAB 15 MG TAB PO SCH (20:32)
[2022-07-26] MEDS: DOCUSATE SODIUM/SENNA 50/8.6MG TAB PO SCH (20:34)
[2022-07-26] MEDS: CLINDAMYCIN 600 MG in DEXTROSE 5% 50 ML IV SCH (23:50)
[2022-07-27] MEDS: SODIUM CHLORIDE 0.9% 1000ML 1,000 ML IV SCH (05:29)
[2022-07-27] MEDS: POLYETHYLENE (MIRALAX) 17 GM PACK PO SCH ×3 (05:35→18:34)
[2022-07-27] MEDS: LEVOTHYROXINE SODIUM 100 MCG TABLET PO SCH (05:36)
[2022-07-27 08:05] LABS: Basophils # (auto) 0.01 K/uL (0-0.2); Basophils % (auto) 0.1 %; Hematocrit (blood only) 28.3 % (34.1-44.9); Hemoglobin 9.5 g/dl (12.0-16.0); Immature Granulocytes # (auto) 0.09 K/uL (0.00-0.02); Immature Granulocytes % (auto) 0.6 %; Lymphocytes # (auto) 0.86 K/uL (1.2-3.4); Lymphocytes % (auto) 5.6 %; Mean Corpuscular Hemoglobin 32.4 pg (25.0-34.0); Mean Corpuscular Hgb Conc 33.6 g/dL (32.0-36.0); Mean Corpuscular Volume 96.6 fL (80.0-100.0); Mean Platelet Volume 9.1 fL (9.4-12.3); Monocytes # (auto) 1.13 K/uL (0.24-0.82); Monocytes % (auto) 7.4 %; Neutrophils # (auto) 13.24 K/uL (1.4-6.5); Neutrophils % (auto) 86.3 %; Platelet Count 358 K/uL (130-400); RDW Coefficient of Variation 14.1 % (11.5-14.5); RDW Standard Deviation 49.8 fL (36.4-46.3); Red Blood Count 2.93 M/uL (3.93-5.22); White Blood Count 15.33 K/ul (4.8-10.8)
[2022-07-27 08:27] LABS: BUN Creatinine Ratio 17.6 (10-20); Calcium 8.8 mg/dl (8.5-10.1); Creatinine Clr Calc Pharmacy 42.7 ml/min; Est GFR (African American) 70.9 ml/min; Est GFR (Non-African American) 61.2 ml/min; Potassium 3.8 mmol/L (3.5-5.1)
[2022-07-27] MEDS: METOPROLOL TARTRATE 25 MG TAB PO SCH ×2 (09:13→21:21)
[2022-07-27] MEDS: CLINDAMYCIN 600 MG in DEXTROSE 5% 50 ML IV SCH (09:13)
[2022-07-27] MEDS: FUROSEMIDE 40 MG TAB PO SCH (09:13)
[2022-07-27] MEDS: FAMOTIDINE 40 MG TABLET PO SCH (09:14)
[2022-07-27] MEDS: CHOLECALCIFEROL 1,000 UNITS 25 MCG TAB PO SCH (09:14)
[2022-07-27] MEDS: dexAMETHasone 6 MG in SYRINGE 0 ML IV SCH (09:15)
[2022-07-27] MEDS: DULoxetine HCL 30 MG CAP PO SCH (09:15)
[2022-07-27] MEDS: GABAPENTIN 100 MG CAP PO SCH (09:15)
[2022-07-27] MEDS: PYRIDOXINE HCL 50 MG TAB PO SCH (09:16)
--- NOTE | 2022-07-27 10:40 | Orthopedic Progress Note ---
Date of Service July 27, 2022 Assessment & Plan (1) Lumbar spinal stenosis: Plan: Patient is postoperative day 1 status post L4-S1 decompression fusion. She is doing great. She will start physical therapy today. Maintain JAVAN drain. DVT prophylaxis is in the form of teds and SCDs. Continue aggressive bowel regimen. We will consult clinical social worker for possible disposition to rehab after hospital stay. Admission and Anticipated Discharge Date Admission Date: July 23, 2022 Jaswant Haney is postoperative day 1 status post L4-S1 decompression fusion. She is doing well. Left lower extremity pain significantly improved. JAVAN drain output last shift was 80 cc. H&H is morning are 9.5 and 28.3 respectively. Review of Systems Review of Systems: All systems reviewed & are unremarkable except as noted in HPI & below Physical Exam Physical Exam: She sitting in a chair no acute distress Alert and oriented x3 Lumbar dressing is clean dry and intact with functioning JAVAN drain Strength intact bilateral lower extremity HARVINDER hose intact bilateral lower extremities Results & Data ([facility]) Vital Signs (Past 12 Hours) Vital Signs Temp Pulse Resp BP BP Pulse Ox O2 Del Method 07/27/22 07:39 36.4 C L 78 16 121/62 93 Room Air 07/27/22 07:28 Room Air 07/27/22 03:12 36.9 C 80 18 100/55 L 94 Nasal Cannula 07/26/22 23:00 36.7 C 79 18 102/54 L 93 Nasal Cannula O2 Flow Rate 07/27/22 07:39 07/27/22 07:28 07/27/22 03:12 1 07/26/22 23:00 2
--- NOTE | 2022-07-27 11:25 | Hospitalist Progress Note ---
Date of Service July 27, 2022 Assessment & Plan (1) Ambulatory dysfunction: Plan: X-rays and CT scan of the lumbar spine, pelvis and hips show severe osteoarthritis as noted, with no signs of fracture - MRI showing severe central canal narrowing L4-5 s/p lumbar decompression by Dr. Daigle 07/26/ - POD#1, doing well, stop fluids and remove heredia - PT/OT eval - recommending short stay in acute rehab, pt agreeable - Pain control, incentive spirometer, bowel regimen - Noted slightly elevated wbc this AM, likely combo of steroids + reactive from surgery - Drain management per Dr. Daigle (2) Left lumbar radiculitis: Plan: - As above (3) Permanent atrial fibrillation: Plan: Permanent A. fib/hypertension- - Takes apixaban, diltiazem, furosemide, losartan and spironolactone at home - Given Cardizem CD dose 120mg on 07/23 and BP dropped to 74 systolic, asymptomatic - Losartan held this AM due to borderline low-normal BP - Continue holding Losartan, received a dose of Lasix this AM, will adjust dose to once a day - Give a SMALL NSS bolus of 250 cc x1, repeat BP following bolus - Adjust meds: STOP Diltiazem CD and will consider changing to low dose Metoprolol if BP will allow, otherwise will need to consider Digoxin for rate control - Currently rate controlled and BP low normal, BP 07/25 128/79, will trial Lopressor 12.5mg BID- increase 07/26 to 25mg BID (4) Osteoarthritis of lumbar spine: Plan: - As above (5) Neuropathy: Plan: - Continue gabapentin, duloxetine - weaning off of gabapentin, can stop at this point since pt has been weaned down to 100mg daily for several days (6) Insomnia: Plan: - Continue mirtazapine (7) Hypothyroid: Plan: - Continue levothyroxine Plan Resume Apixaban with underlying afib today. CM on consult for dc planning as therapy recommending rehab. Plan to be d/w Dr. Calderón, further orders as warranted. Admission and Anticipated Discharge Date Admission Date: July 23, 2022 Subjective Patient seen on daily rounds this morning. She is pod#1 following lumbar decompression with Dr. Daigle. She notes pain is adequately controlled, no c/o pain down left leg. She was unsteady upon standing with therapy. No cp or dyspnea. Review of Systems Review of Systems: All systems reviewed and are unremarkable except as noted in HPI and below. Denies fever, chills, fatigue, headache, nasal congestion, sore throat, cough, chest pain, shortness of breath, palpitations, orthopnea, PND, abdominal pain, n/v/d, constipation, dysuria, hematuria, frequency, easy bruising or bleeding. Physical Exam Physical Exam: GENERAL: 87 yo Well-developed, well-nourished WF. NAD. LUNGS: Clear to auscultation bilaterally. No W/R/R. CARDIOVASCULAR: S1 S2 irregular with controlled rate ABDOMEN: Soft, non-tender and non-distended. BS normoactive x 4 quad. : heredia in place, pale yellow urine EXTREMITIES: No edema. Non-tender. Peripheral pulses +2/4. NEUROLOGIC: A&O x3. Nonfocal. PSYCHIATRIC: Cooperative. Appropriate mood and affect. SKIN: Warm, dry, intact. No rashes or lesions. Results & Data Results & Data ([facility]) Vital Signs (Past 12 Hours) Vital Signs Temp Pulse Resp BP BP Pulse Ox O2 Del Method 07/27/22 07:39 36.4 C L 78 16 121/62 93 Room Air 07/27/22 07:28 Room Air 07/27/22 03:12 36.9 C 80 18 100/55 L 94 Nasal Cannula O2 Flow Rate 07/27/22 07:39 07/27/22 07:28 07/27/22 03:12 1 Laboratory Results 07/27/22 07:27 07/27/22 07:27 PG Care Time/CCT Total # of Minutes Spent Total Time Spent with Patient: Total time spent is greater than 50% in coordination of care (as documented) at patient's floor/unit and/or counseling patient: Coding Level of Care Code 90179 Subseq Hosp Care Lvl 2 Diagnoses Ambulatory dysfunction R26.2 Left lumbar radiculitis M54.16 Permanent atrial fibrillation I48.21 Osteoarthritis of lumbar spine M47.816 Neuropathy G62.9 Insomnia G47.00 Hypothyroid E03.9
[2022-07-27] MEDS: APIXABAN 5 MG TABLET PO SCH (12:04)
[2022-07-27] MEDS: DOCUSATE SODIUM/SENNA 50/8.6MG TAB PO SCH (21:21)
[2022-07-27] MEDS: MIRTAZAPINE TAB 15 MG TAB PO SCH (21:22)
[2022-07-28] MEDS: POLYETHYLENE (MIRALAX) 17 GM PACK PO SCH ×5 (00:31→23:57)
[2022-07-28] MEDS: LEVOTHYROXINE SODIUM 100 MCG TABLET PO SCH (06:10)
--- NOTE | 2022-07-28 08:15 | Orthopedic Progress Note ---
Date of Service July 28, 2022 Assessment & Plan (1) Lumbar spinal stenosis: Plan: Alina is postoperative day 2 status post L4-S1 decompression and fusion. Maintain JAVAN drain. Continue physical therapy. Continued pain control. Continue with bowel regimen. Eliquis has been resumed. she has currently been accepted to [facility] if she accepts the COVID booster. She is orthopedically stable for discharge. DC JAVAN drain and dressing change just prior to discharge. We will see her in the office in 2 weeks for x-rays and reevaluation. Please call for appointment Admission and Anticipated Discharge Date Admission Date: July 23, 2022 Jaswant Haney is postoperative day 2 status post L4-S1 decompression and instrumented fusion. She is resting comfortably. Left leg pain greatly improved as of yesterday. Yesterday in physical therapy she is ambling roughly 30 feet. JAVAN drain output last shift was 60 cc. She had an uneventful evening. Review of Systems Review of Systems: All systems reviewed & are unremarkable except as noted in HPI & below Physical Exam Physical Exam: She is sleeping but easily arousable Lumbar dressing is clean or dry and intact functioning JAVAN drain Results & Data ([facility]) Vital Signs (Past 12 Hours) Vital Signs Temp Pulse Resp BP Pulse Ox O2 Del Method 07/28/22 07:15 36.9 C 80 18 108/67 92 Room Air 07/27/22 21:19 37 C 122 H 18 110/57 L 94 Room Air
[2022-07-28] MEDS: METOPROLOL TARTRATE 25 MG TAB PO SCH ×2 (08:47→21:05)
[2022-07-28] MEDS: PYRIDOXINE HCL 50 MG TAB PO SCH (08:47)
[2022-07-28] MEDS: DULoxetine HCL 30 MG CAP PO SCH (08:48)
[2022-07-28] MEDS: CHOLECALCIFEROL 1,000 UNITS 25 MCG TAB PO SCH (08:48)
[2022-07-28] MEDS: GABAPENTIN 100 MG CAP PO SCH (08:48)
[2022-07-28] MEDS: FAMOTIDINE 40 MG TABLET PO SCH (08:48)
[2022-07-28] MEDS: FUROSEMIDE 40 MG TAB PO SCH (08:48)
[2022-07-28] MEDS: dexAMETHasone 6 MG in SYRINGE 0 ML IV SCH (08:49)
[2022-07-28] MEDS ORDERED: ENOXAPARIN INJ 40 MG/0.4 ML SYR SQ SCH (09:00)
[2022-07-28] MEDS ORDERED: COVID19 BIVALENT Vaccine (Booster ONLY--Pfizer) 30mcg/0.3mL IM ONE (11:04)
[2022-07-28] MEDS ORDERED: LORazepam 0.5 MG TAB PO PRN (12:20)
[2022-07-28] MEDS: SIMETHICONE 80 MG CHEW PO PRN (13:39)
--- NOTE | 2022-07-28 16:32 | Hospitalist Progress Note ---
Date of Service July 28, 2022 Assessment & Plan (1) Ambulatory dysfunction: Plan: X-rays and CT scan of the lumbar spine, pelvis and hips show severe osteoarthritis as noted, with no signs of fracture - MRI showing severe central canal narrowing L4-5 s/p lumbar decompression by Dr. Daigle 07/26/22 - doing well post op, pain in LLE much improved, hgb stable POD#1 - PT/OT eval - recommending rehab - Pain control, incentive spirometer, bowel regimen -with slightly elevated wbc , likely combo of steroids + reactive from surgery - Drain management per Dr. Daigle-plan to remove prior to discharge Crow out and voiding on own (2) Left lumbar radiculitis: Plan: - As above (3) Permanent atrial fibrillation: Plan: Permanent A. fib/hypertension- - Takes apixaban, diltiazem, furosemide, losartan and spironolactone at home - Given Cardizem CD dose 120mg on 07/23 and BP dropped to 74 systolic, asymptomatic - Losartan held due to borderline low-normal BP - Continue holding Losartan, lowered frequency of Lasix to once a day -STOPPED Diltiazem CD and started Lopressor 25mg BID which she is tolerating -resume ELiquis this evening as has now been over 48 hrs since surgery (4) Neuropathy: Plan: - Continue gabapentin, duloxetine - weaning off of gabapentin, have stopped it at this point since pt has been weaned down to 100mg daily for several days (5) Insomnia: Plan: - Continue mirtazapine pt requests adding her lorazepam back on (6) Hypothyroid: Plan: - Continue levothyroxine Plan Dispo-plan to dc to rehab tomorrow COVID booster given today as per [facility] requirement and pt agreeable Admission and Anticipated Discharge Date Admission Date: July 23, 2022 Subjective Pt denies pain in LLE or left hip since surgery. No CP, SOB. No nausea but appetite not great. Is moving her bowels. Review of Systems Review of Systems: All systems reviewed & are unremarkable except as noted in HPI & below Physical Exam Constitutional: WD/WN, vitals as above Eyes: + anicteric sclerae Neck: trachea midline, no thyromegaly Respiratory: normal respiratory effort, lungs clear to auscultation Cardiovascular: Rate/Rhythm: regular rate and + irregularly irregular Heart Sounds: no murmur Extremities: no edema Chest (Breasts): Chest: normal inspection of chest Gastrointestinal (Abdomen): normal bowel sounds, soft, nontender, no hepatosplenomegaly Musculoskeletal: Extremities: extremities normal to inspection; no cyanosis and no clubbing Skin: no rashes, warm and dry Neurologic: moves all extremities and awake; no focal motor deficits Psychiatric: A+Ox3, euthymic affect Lymphatic: no lymphedema Results & Data Results & Data ([facility]) Vital Signs (Past 12 Hours) Vital Signs Temp Pulse Resp BP Pulse Ox O2 Del Method 07/28/22 14:50 36.7 C 81 18 95/59 L 96 Room Air 07/28/22 07:15 36.9 C 80 18 108/67 92 Room Air PG Care Time/CCT Total # of Minutes Spent Total Time Spent with Patient: Total time spent is greater than 50% in coordination of care (as documented) at patient's floor/unit and/or counseling patient: Coding Level of Care Code 12936 Subseq Hosp Care Lvl 2 Diagnoses Ambulatory dysfunction R26.2 Left lumbar radiculitis M54.16 Permanent atrial fibrillation I48.21 Neuropathy G62.9 Insomnia G47.00 Hypothyroid E03.9
[2022-07-28] MEDS: DOCUSATE SODIUM/SENNA 50/8.6MG TAB PO SCH (21:06)
[2022-07-28] MEDS: MIRTAZAPINE TAB 15 MG TAB PO SCH (21:06)
[2022-07-28] MEDS: APIXABAN 5 MG TABLET PO SCH (21:28)
[2022-07-29] MEDS: POLYETHYLENE (MIRALAX) 17 GM PACK PO SCH ×2 (06:12→13:11)
[2022-07-29] MEDS: LEVOTHYROXINE SODIUM 100 MCG TABLET PO SCH (06:12)
[2022-07-29 06:42] LABS: Basophils # (auto) 0.03 K/uL (0-0.2); Basophils % (auto) 0.2 %; Hematocrit (blood only) 24.7 % (34.1-44.9); Hemoglobin 8.5 g/dl (12.0-16.0); Immature Granulocytes # (auto) 0.13 K/uL (0.00-0.02); Immature Granulocytes % (auto) 0.8 %; Lymphocytes # (auto) 1.72 K/uL (1.2-3.4); Lymphocytes % (auto) 10.3 %; Mean Corpuscular Hemoglobin 32.9 pg (25.0-34.0); Mean Corpuscular Hgb Conc 34.4 g/dL (32.0-36.0); Mean Corpuscular Volume 95.7 fL (80.0-100.0); Mean Platelet Volume 9.5 fL (9.4-12.3); Monocytes # (auto) 2.09 K/uL (0.24-0.82); Monocytes % (auto) 12.5 %; Neutrophils % (auto) 76.2 %; Platelet Count 303 K/uL (130-400); RDW Coefficient of Variation 14.1 % (11.5-14.5); RDW Standard Deviation 48.9 fL (36.4-46.3); Red Blood Count 2.58 M/uL (3.93-5.22); White Blood Count 16.67 K/ul (4.8-10.8)
[2022-07-29 07:15] LABS: BUN Creatinine Ratio 29.9 (10-20); Calcium 8.6 mg/dl (8.5-10.1); Creatinine Clr Calc Pharmacy 47.1 ml/min; Est GFR (African American) 79.9 ml/min; Est GFR (Non-African American) 68.9 ml/min; Potassium 3.4 mmol/L (3.5-5.1)
--- NOTE | 2022-07-29 08:16 | Orthopedic Progress Note ---
Date of Service July 29, 2022 Assessment & Plan (1) Lumbar spinal stenosis: Plan: Medina is postop day 3 L4-S1 decompression instrumented fusion. She is doing great. She is orthopedically stable for discharge to [facility]. I have placed an order to DC JAVAN drain and have a dressing change just prior to discharge. We will follow her up in the office in 2 weeks. Admission and Anticipated Discharge Date Admission Date: July 23, 2022 Subjective eMdina is postoperative day 3 status post L4-S1 decompression and instrumented fusion. She is doing well. Left leg pain has resolved. JAVAN drain output last shift was 40 cc. She is ambulating 170 feet with physical therapy yesterday. No new complaints. Eliquis has been resumed. She is most likely being discharged to [facility] today. Review of Systems Review of Systems: All systems reviewed & are unremarkable except as noted in HPI & below Physical Exam Physical Exam: She is sitting in a chair no acute distress Alert and oriented x3 Strength is intact bilateral lower extremities Lumbar dressing is clean dry and intact with functioning JAVAN drain Results & Data ([facility]) Vital Signs (Past 12 Hours) Vital Signs Temp Pulse Resp BP Pulse Ox O2 Del Method 07/29/22 07:28 37 C 97 H 18 138/75 93 Room Air 07/28/22 21:00 85 105/69 07/28/22 21:39 37.0 C 102 H 18 135/80 93 Room Air
[2022-07-29] MEDS: FUROSEMIDE 40 MG TAB PO SCH (08:27)
[2022-07-29] MEDS: GABAPENTIN 100 MG CAP PO SCH (08:27)
[2022-07-29] MEDS: PYRIDOXINE HCL 50 MG TAB PO SCH (08:27)
[2022-07-29] MEDS: FAMOTIDINE 40 MG TABLET PO SCH (08:27)
[2022-07-29] MEDS: DULoxetine HCL 30 MG CAP PO SCH (08:27)
[2022-07-29] MEDS: CHOLECALCIFEROL 1,000 UNITS 25 MCG TAB PO SCH (08:28)
[2022-07-29] MEDS: APIXABAN 5 MG TABLET PO SCH (08:28)
[2022-07-29] MEDS: SIMETHICONE 80 MG CHEW PO PRN (08:53)
[2022-07-29] MEDS: METOPROLOL TARTRATE 25 MG TAB PO SCH (08:53)
[2022-07-29] MEDS: dexAMETHasone 6 MG in SYRINGE 0 ML IV SCH (08:54)
[2022-07-29] MEDS ORDERED: POTASSIUM CHLORIDE CRTAB 20 MEQ TABCR PO STA (11:54)
--- NOTE | 2022-07-29 12:25 | Discharge Summary ---
Date of Service July 29, 2022 Admission HPI Per Admitting Provider The patient is a an 87-year-old female with a past medical history including peripheral neuropathy, insomnia, lower extremity edema, MAILE, anemia, hypothyroidism, hyperlipidemia, hypertension and permanent atrial fibrillation. She had recently moved from [facility] to [place] [facility] to be closer to her family. She had had an outpatient x-ray which showed significant osteoarthritis of left hip, and has been waiting in the outpatient setting for an orthopedic appointment. Due to worsening pain and worsening ability to ambulate, she was brought to the emergency department for assessment, patient's family was unable to take her home at this time. She was also found to be in known atrial fibrillation, heart rate initially of recorded as 120, did improve with pain control. Principal Diagnosis Lumbar radiculopathy Discharge Exam Constitutional WD/WN, vitals as above Eyes + anicteric sclerae Neck trachea midline, no thyromegaly Respiratory normal respiratory effort, lungs clear to auscultation Cardiovascular Rate/Rhythm: regular rate and + irregularly irregular Heart Sounds: no murmur Extremities: + edema (trace peripheral edema legs) Chest (Breasts) Chest: normal inspection of chest Gastrointestinal (Abdomen) normal bowel sounds, soft, nontender, no hepatosplenomegaly Musculoskeletal Extremities: extremities normal to inspection; no cyanosis and no clubbing Skin no rashes, warm and dry Neurologic moves all extremities and awake; no focal motor deficits Psychiatric A+Ox3, euthymic affect Lymphatic no lymphedema Discharge Data Allergies Allergy/AdvReac Type Severity Reaction Status Date / Time Penicillins Allergy Unknown Unknown Verified 07/26/22 13:48 Cjtnehi-CKP-LsZ Reductase AdvReac Severe Muscle Pain Verified 07/26/22 13:48 Inhibitor Consultations 07/22/22 23:52 ED Decision to Admit Stat 07/23/22 17:45 Consult Orthopedic Surgery Routine Procedures Performed Operation Date: 07/26/22 08:20 Actual Procedures p L4-S1 Decompression and Fusion(Not Applicable) - Tigre Daigle DO Ordered Studies 07/22/22 20:05 US venous doppler LE LT Stat 07/23/22 00:09 CT bony pelvis wo con Urgent 07/23/22 11:23 MRI Lumbar Spine [MR lumbar spine wo con] Routine 07/26/22 14:30 FL lumbar spine 2-3V Routine Hospital Course (1) Ambulatory dysfunction: X-rays and CT scan of the lumbar spine, pelvis and hips show severe osteoarthri tis as noted, with no signs of fracture - MRI showing severe central canal narrowing L4-5 s/p lumbar decompression by Dr. Daigle 07/26/22 - doing well post op, pain in LLE much improved, hgb drop to 8.5 - PT/OT eval - recommending rehab - Pain control, incentive spirometer, bowel regimen-is moving bowels -with slightly elevated wbc , likely combo of steroids + reactive from surgery - Drain management per Dr. Daigle-plan to remove prior to discharge Crow out and voiding on own f/u with Dr. Daigle 2 weeks from surgery (2) Left lumbar radiculitis: - As above (3) Permanent atrial fibrillation: Permanent A. fib/hypertension- - Takes apixaban, diltiazem, furosemide, losartan and spironolactone at home - Given Cardizem CD dose 120mg on 07/23 and BP dropped to 74 systolic, asymptomatic - Losartan held due to borderline low-normal BP - dc losartan, lowered frequency of Lasix and aldactone to once a day -STOPPED Diltiazem CD and started Lopressor 25mg BID which she is tolerating -resumed ELiquis after 48 hrs post-op (4) Neuropathy: - Continue gabapentin, duloxetine - weaning off of gabapentin, down to 100mg daily and can stop in 1 week (5) Insomnia: - Continue mirtazapine pt requests adding her lorazepam back on-continue lorazepam bid prn (6) Hypothyroid: - Continue levothyroxine (7) Hypokalemia: replaced with KCl and should improve once aldactone restarted -give KCl 10 meq po daily on discharge and check BMP in 1 week (8) Peripheral edema: continue lasix, aldactone as above decreased to once daily (9) Anemia: hgb 8.5 down from baseline of 11.4 preop acute blood loss anemia normocytic start FeSO4 325mg po bid if can tolerate from GI standpoint given h/o constipation check CBC in 1 week (10) Hypertension: as above, meds changed Plan Dispo-plan to dc to rehab today COVID booster given here on 07/28 as per NH requirement and pt agreeable Total Time Total Time Spent Total Time Spent (In Minutes): 40 min Discharge Plan Discharge Items Patient Disposition: Transfer Alf Fac Reason For Visit: SEVERE HIP PAIN, TACHYCARDIA Discharge Diagnosis: Lumbar radiculopathy Condition on Discharge: Good Activity: As commented below Lifting: No more than 5 pounds Bathing Comment: may shower 07/29 Weightbearing: Full weightbearing Non-emergency contact: Primary Care Provider and Surgeon Call non-emergency contact if: you have any medication questions and your symptoms worsen Follow-up/Referrals: Obey Peacock CRNP [Primary Care Provider] - Tigre Daigle DO [Surgeon] - Diet: Heart Healthy Addtl Attending Provider Instructions: ACTIVITY RECOMMENDATIONS: SELF CARE INSTRUCTIONS AFTER THORACIC/LUMBAR FUSIONS 1. You may walk to your tolerance. It is good exercise for your legs and back. Expect some back and intermittent leg aches and pains. 2. You may perform "counter-top" level activities (make a sandwich, marisabel with a project, etc.). 3. No bending or lifting of more than 10 pounds or back twisting of any nature (roll like a log when turning in bed). 4. You may ride in a car for 20-30 minutes at a time. No driving until after your first visit with your doctor. 5. Frequent changes of position and restricting sitting to 30 minutes at a time will help limit the amount of back spasms and stiffness you may experience. 6. You may discontinue the use of ambulatory aids (cane, crutches, etc.) once your strength and confidence allow. 7. You may ict systems test engineer the shower and let water strike your incision when you arrive home at least once daily. Do not take a tub bath, sit in a hot tub or go into a swimming pool until after your first recheck in the office. SPECIAL CARE INSTRUCTIONS: VERY IMPORTANT TO READ AND REVIEW A. Your surgical incision has been closed with a cosmetic suture under the skin that will dissolve in about 6 weeks. In 14 days, you can use a pair of clean scissors and cut the suture that is left outside of the skin at the ends of your incision. 1. The small skin tapes can be removed 7 days after surgery if they have not fallen off by that point. 2. You may keep the wound open to air as much as possible to promote healing after post-op day number 5 unless told otherwise by your doctor. 3. If you think the wound looks like it is becoming infected (redness or worsening drainage) and/or you are experiencing fever, chill or worsening back pain and muscle spasms, contact the office so that we may evaluate you as soon as possible. B. Complications are uncommon, but please contact us if you have any signs or symptoms of: 1. wound infection (fever higher than 102.5 degrees F, redness, separation of wound, drainage, or increasing pain from the incision) 2. blood clots in legs (pain, swelling, redness and warmth in legs) 3. urinary tract infection (fever higher than 102.5 degrees F, burning upon urination or increased frequency of urination) 4. nerve problems (inability to walk on your toes or heels, numbness, loss of bowel or bladder control) 5. any other symptoms that concern you C. Please call the office at if you have any concerns or questions about your operation or recovery. D. No smoking! Smoking drastically decreases the chance of a solid fusion. E. Do not take any anti-inflammatory medications (Indocin, Advil, Motrin, Aspirin, Naprosyn, etc.) as these may inhibit the chance of a solid fusion. Tylenol is okay to take for pain. MANAGING PAIN AFTER SPINAL SURGERY 1. Narcotic medication is intended for short-term use and will be provided for surgical pain. Surgical pain usually lasts for a period of 4-6 weeks. Narcotic medication includes Percocet, Vicodin, Darvocet, Tylenol #3 or Lortab. 2. Longer-term pain is more appropriately treated with non-narcotic medication such as Tylenol ES. 3. Muscle spasm is not appropriately treated with narcotics. Muscle relaxers such as Soma, Flexeril or Skelaxin can be used along with Tylenol ES. 4. Remember that we all live with some "aches and pains". This is not unusual or uncommon after an injury or as we get older. a. Back pain is expected and may include muscle spasms for 4 to 6 weeks after surgery. The pain should gradually improve. If the pain worsens for no apparent reason, please contact the office. b. Intermittent leg pain may also be experienced and should not be concerned about unless it worsens for no apparent reason. If so, please contact the office. 5. We will provide appropriate medication within the normal guidelines of their prescribed use. We will also be very cautious and aware of potential abuse and extended duration of patients' medication needs. a. Pain medications are for your comfort and to assist with sleep and rest so that the tissue can heal. They are not provided in order to return to normal activity and should not be used through the day. To do so or worsening pain at night can result from ongoing tissue damage and d evelopment of tolerance to the prescribed medicine. 6. Please allow 2-3 days to process refills. Prescriptions will not be mailed but must be picked up at the office. FOLLOW UP VISIT: Keep your scheduled follow-up appointment. Any questions, please call the office at . Addtl Dolphin Researcher Provider Instructions: Your blood pressure medications were changed around a bit due to some lower blood pressures you had. Your diltiazem and losartan were stopped, and your lasix and aldactone were reduced to once daily. You were started on a daily potassium supplement and should have your potassium levels checked in 1 week. You were started on a low dose of metoprolol to control your heart rate for your atrial fibrillation. Please continue with your bowel regimen to keep your bowels moving once daily. For your anemia due to some blood loss, you were started on an iron tablet. If this causes you too much constipation, you can stop it. Please have your CBC (complete blood count) checked in 1 week to ensure your hemoglobin levels are going back up. Pending Studies at Discharge: No Stand-Alone Forms: [facility] Skilled Items Patient informed of condition?: Yes DNR: No Discharge Level of Care: Skilled Communicable Disease: No Discharge Prognosis: Improving Lines: None Urinary Catheter: No Medications and DC Order Prescriptions: New ferrous sulfate 325 mg (65 mg iron) Tablet,Delayed Release (Dr/Ec) 325 mg PO BIDM Qty: 60 0RF metoprolol tartrate 25 mg Tablet 25 mg PO BID Qty: 60 0RF potassium chloride 10 mEq tablet extended release 10 meq PO DAILY Qty: 30 0RF sennosides-docusate sodium [Senokot-S] 8.6-50 mg Tablet 2 tab PO HS Qty: 60 0RF simethicone [Gas Relief (simethicone)] 80 mg Tablet,Chewable 80 mg PO Q6H PRN (Reason: gas) Qty: 20 0RF Continued multivitamin Tablet 1 tab PO DAILY cyanocobalamin (vitamin B-12) [Vitamin B-12] 1,000 mcg Tablet 1,000 mcg PO DAILY acetaminophen 650 mg tablet extended release 650 mg PO TID levothyroxine 100 mcg tablet 100 mcg PO DAILY Vitamin C 100 mg Tablet 100 mg PO DAILY magnesium 250 mg Tablet 250 mg PO DAILY pyridoxine (vitamin B6) [Vitamin B-6] 100 mg Tablet 100 mg PO DAILY mirtazapine 15 mg tablet 7.5 mg PO HS ipratropium bromide 21 mcg (0.03 %) spray,non-aerosol 2 spray INTRANASAL BID PRN (Reason: Nasal Congestion) coenzyme Q10 [CoQ-10] 100 mg Capsule 100 mg PO DAILY [place] 3 Capsule 1,000 mg PO DAILY Align 4 mg Capsule 4 mg PO DAILY Eliquis 5 mg tablet 5 mg PO BID Caltrate 600 plus D 600 mg-20 mcg (800 unit) Tablet,Chewable 1 tab PO BID duloxetine 30 mg capsule,delayed release(DR/EC) 30 mg PO DAILY cholecalciferol (vitamin D3) 50 mcg (2,000 unit) capsule 2,000 unit PO DAILY lorazepam 0.5 mg tablet 0.5 mg PO BID PRN (Reason: Anxiety or insomnia) Qty: 6 0RF Changed famotidine 40 mg tablet 40 mg PO DAILY Qty: 30 0RF furosemide 40 mg tablet 40 mg PO QAM Qty: 30 0RF gabapentin 100 mg capsule 100 mg PO DAILY Qty: 30 0RF spironolactone 25 mg tablet 25 mg PO QAM Qty: 30 0RF Discontinued losartan 50 mg tablet 50 mg PO DAILY celecoxib 200 mg capsule 200 mg PO QAM tizanidine 4 mg tablet 4 mg PO Q8 PRN (Reason: Muscle Spasm) hydrocodone-acetaminophen 5-325 mg tablet 1 tab PO Q6 PRN (Reason: Pain) lidocaine 5 % Adhesive Patch,Medicated 1 patch TOPICAL DAILY Rx Instructions: leave on most painful area for up to 12 hrs diltiazem HCl 120 mg capsule,extended release 24hr 120 mg PO DAILY potassium gluconate 595 mg (99 mg) Tablet 595 mg PO DAILY Discharge Orders: Discharge Order (Routine); Ordered 07/29/22 Ordered By: Rylie Rothman Admission Data Admit Date/Time: 07/23/22 11:27 Attending Provider: Rylie Rothman Admit Provider: Puma Cary Primary Care Provider: Obey Peacock Other Providers: Loco Davis [facility] ; Puma Cary ; Tigre Daigle ; Tatianna Baptiste at [place] ; [facility] Coding Level of Care Code D/C DAY MANAGEMENT >30 MINS Diagnoses Ambulatory dysfunction R26.2 Left lumbar radiculitis M54.16 Permanent atrial fibrillation I48.21 Neuropathy G62.9 Insomnia G47.00 Hypothyroid E03.9 Hypokalemia E87.6 Peripheral edema R60.9 Anemia D64.9 Hypertension I10
[2022-07-29] MEDS ORDERED: FERROUS SULFATE 325 MG TAB PO SCH (17:00)
[2022-07-30] MEDS ORDERED: POTASSIUM CHLORIDE CRTAB 20 MEQ TABCR PO SCH (09:00)
== END 2022-07-29 16:47 | DRG 454 ==
LOC: ED 18:24 → EDINP 18:24 → SUATTDRO 23:58 → 3N 07-23 02:32 → SUATTDRO 07-23 11:27 → 3N 07-23 15:57